=== PATIENT | female | born 1940 | race Two or more races ===

== ENCOUNTER 2021-05-07 10:57 | Emergency (ER) | payer OTHER ==
[~2021-05-07] VITALS: Ht 162.6 cm; Wt 99.8 kg
[~2021-05-07 10:57] MED LIST: ASPI81CH PO; ATOR40TA PO; CEPH500 PO; CHOL10002 PO; CLOP75 PO; FISH1000 PO; INSULIN PEN; LEVSOD75 PO; LIRA0.6P; LIRA0.6P SC; LOVA40 PO; MELO7.5 PO; METF500 PO; METF500C PO; METO25 PO; Norco 5-325 Ta1 EACH PO; OXYACE5T PO; Omeprazole20 M1 PO; PANT40 PO; RXSULTRIDS PO; SULTRIDS PO; TELM80 PO; VITAMIN B122500 MC1 PO; Zofran Odt4 MG SL
[2021-05-07 11:20] LABS: Calcium, Ionized (POC) 1.09 mmol/L (1.10-1.46); Chloride (POC) 97 mmol/L (98-108); Creatinine (POC) 1.6 mg/dL (0.6-1.0); Glucose (ISTAT POC) 300 mg/dL (70-99); Hemoglobin (POC) 12.9 g/dL (12.0-16.0); Potassium (POC) 4.2 mmol/L (3.5-5.5); Sodium (POC) 130 mmol/L (135-148); Total CO2 (POC) 23 mmol/L (21-32)
[2021-05-07 11:34] LABS: BASOPHILS ABSOLUTE AUTO 0.05 K/mm3 (0.00-0.23); BASOPHILS PERCENT AUTO 1 % (0-2); EOSINOPHILS ABSOLUTE AUTO 0.12 K/mm3 (0.00-0.68); EOSINOPHILS PERCENT AUTO 1 % (0-6); Hematocrit 36.5 % (33.0-51.0); Hemoglobin 12.4 g/dL (11.5-16.0); IMMATURE GRAN ABSOLUTE AUTO 0.09 K/mm3 (0.00-0.10); IMMATURE GRAN PERCENT AUTO 1 % (0-1); LYMPHOCYTES ABSOLUTE AUTO 1.97 K/mm3 (0.84-5.20); LYMPHOCYTES PERCENT AUTO 19 % (21-46); MONOCYTES ABSOLUTE AUTO 0.73 K/mm3 (0.16-1.47); MONOCYTES PERCENT AUTO 7 % (4-13); Mean Corpuscular Volume 94 fL (80-100); Mean Platelet Volume 9.7 fL (9.1-12.4); NEUTROPHILS ABSOLUTE AUTO 7.23 K/mm3 (1.96-9.15); NEUTROPHILS PERCENT AUTO 71 % (41-73); Platelet Count 319 K/mm3 (150-400); RDW Coefficient Variation 12.1 % (11.7-14.2); RDW Standard Deviation 41.5 fL (35.1-46.3); Red Blood Cell Count 3.87 M/mm3 (3.80-5.20); White Blood Cell Count 10.19 K/mm3 (4.00-11.30)
[2021-05-07 11:57] LABS: Albumin, Blood 3.2 g/dL (3.4-5.0); Albumin/Globulin Ratio 0.9 (0.8-1.8); Bilirubin, Total 0.6 mg/dL (0.1-1.0); Bun/Creatinine Ratio 20.2 (12.0-20.0); Calcium, Blood 8.8 mg/dL (8.5-10.1); Creatinine, Blood 1.63 mg/dL (0.40-1.00); Globulin, Blood 3.5 g/dL (2.2-4.0); Potassium, Blood 4.1 mmol/L (3.5-5.5); Total Protein, Blood 6.7 g/dL (6.4-8.2)
[2021-05-07 14:06] LABS: Source, Urine Clean Catch
[2021-05-07 14:09] LABS: Appearance, Urine Clear (Clear); Bilirubin, Urine Neg (Neg); Blood, Urine Neg (Neg); Color, Urine Yellow (P-Yellow); Glucose Qualitative, Urine 4+ (Neg); Ketones, Urine 1+ (Neg); Leukocyte Esterase, Urine Neg (Neg); Nitrite, Urine Neg (Neg); Protein, Urine 1+ (Neg); Urobilinogen, Urine NORM (Normal)
[2021-05-07] MEDS ORDERED: DOCU100 PO (14:34)
[2021-05-07] MEDS ORDERED: HYDR1TAB94 PO (14:34)
== END 2021-05-07 15:28 | disposition home or self-care (01) ==
LOC: ER 10:57
PROVIDERS: Emergency Medicine
DX: K40.20 Bilateral inguinal hernia, without obstruction or gangrene, not specified as recurrent (principal); R19.00 Intra-abdominal and pelvic swelling, mass and lump, unspecified site; I25.10 Atherosclerotic heart disease of native coronary artery without angina pectoris; E11.9 Type 2 diabetes mellitus without complications; Z79.82 Long term (current) use of aspirin; Z79.84 Long term (current) use of oral hypoglycemic drugs; Z79.899 Other long term (current) drug therapy
CPT/HCPCS: 74177; 80047; 80053; 83690; 85014; 85025; 93005; 93010; 96374; 99284-25; J3010; J7030; Q9967

== ENCOUNTER 2021-08-06 13:20 | Emergency (ER) | payer OTHER ==
[~2021-08-06] VITALS: Ht 165.1 cm; Wt 90.7 kg
[~2021-08-06 13:20] MED LIST changes: +DOCU100 PO; +HYDR1TAB94 PO
[2021-08-06 14:10] LABS: BASOPHILS ABSOLUTE AUTO 0.08 K/mm3 (0.00-0.23); BASOPHILS PERCENT AUTO 1 % (0-2); EOSINOPHILS ABSOLUTE AUTO 0.17 K/mm3 (0.00-0.68); EOSINOPHILS PERCENT AUTO 2 % (0-6); Hematocrit 34.8 % (33.0-51.0); Hemoglobin 11.6 g/dL (11.5-16.0); IMMATURE GRAN ABSOLUTE AUTO 0.03 K/mm3 (0.00-0.10); IMMATURE GRAN PERCENT AUTO 0 % (0-1); LYMPHOCYTES ABSOLUTE AUTO 1.99 K/mm3 (0.84-5.20); LYMPHOCYTES PERCENT AUTO 25 % (21-46); MONOCYTES ABSOLUTE AUTO 0.47 K/mm3 (0.16-1.47); MONOCYTES PERCENT AUTO 6 % (4-13); Mean Corpuscular HGB 32.3 pg (26.0-34.0); Mean Corpuscular HGB Conc 33.3 g/dL (31.5-36.5); Mean Corpuscular Volume 97 fL (80-100); Mean Platelet Volume 8.4 fL (9.1-12.4); NEUTROPHILS ABSOLUTE AUTO 5.12 K/mm3 (1.96-9.15); NEUTROPHILS PERCENT AUTO 65 % (41-73); Platelet Count 441 K/mm3 (150-400); RDW Coefficient Variation 13.2 % (11.7-14.2); RDW Standard Deviation 47.7 fL (35.1-46.3); Red Blood Cell Count 3.59 M/mm3 (3.80-5.20); White Blood Cell Count 7.86 K/mm3 (4.00-11.30)
[2021-08-06 14:31] LABS: Albumin, Blood 3.9 g/dL (3.4-5.0); Bilirubin, Total 0.4 mg/dL (0.1-1.0); Bun/Creatinine Ratio 13.1 (12.0-20.0); Calcium, Blood 9.4 mg/dL (8.5-10.1); Creatinine, Blood 1.37 mg/dL (0.40-1.00); Globulin, Blood 4.1 g/dL (2.2-4.0); Potassium, Blood 4.8 mmol/L (3.5-5.5)
[2021-08-06 17:03] LABS: Source, Urine Clean Catch
[2021-08-06 17:25] LABS: Bilirubin, Urine Neg (Neg); Blood, Urine 1+ (Neg); Glucose Qualitative, Urine Neg (Neg); Ketones, Urine 1+ (Neg); Leukocyte Esterase, Urine 3+ (Neg); Nitrite, Urine Neg (Neg); Protein, Urine 2+ (Neg); Urobilinogen, Urine NORM (Normal)
[2021-08-06 17:35] LABS: Appearance, Urine Clear (Clear); Color, Urine Pale Yellow (P-Yellow)
[2021-08-06 17:36] LABS: Squamous Epithelial Cells Many /hpf (Few)
[2021-08-06 17:37] LABS: Bacteria Few /hpf; Red Blood Cells, Urine 0-2 /hpf (0-2)
[2021-08-06] MEDS ORDERED: Percocet 5-3251 EACH PO (18:10)
== END 2021-08-06 18:29 | disposition home or self-care (01) ==
LOC: ER 13:20
PROVIDERS: Physician Assistant
DX: B02.29 Other postherpetic nervous system involvement (principal); Z79.899 Other long term (current) drug therapy; Z79.84 Long term (current) use of oral hypoglycemic drugs; Z79.82 Long term (current) use of aspirin; E11.9 Type 2 diabetes mellitus without complications
CPT/HCPCS: 36415; 74177; 80053; 81001; 83690; 85025; 87086; 99284-25; Q9967

== ENCOUNTER 2021-11-17 12:27 | Inpatient (IN) | payer OTHER ==
[~2021-11-17] VITALS: Ht 162.6 cm; Wt 89.4 kg
[~2021-11-17 12:27] MED LIST changes: -CHOL10002 PO; +Percocet 5-3251 EACH PO; +VITAMIN D31000 UNI1 PO
[2021-11-17 13:16] LABS: Hematocrit 31.3 % (33.0-51.0); Hemoglobin 10.6 g/dL (11.5-16.0); Mean Corpuscular HGB 32.6 pg (26.0-34.0); Mean Corpuscular HGB Conc 33.9 g/dL (31.5-36.5); Mean Corpuscular Volume 96 fL (80-100); Mean Platelet Volume 9.1 fL (9.1-12.4); Platelet Count 370 K/mm3 (150-400); RDW Coefficient Variation 11.7 % (11.7-14.2); RDW Standard Deviation 41.1 fL (35.1-46.3); Red Blood Cell Count 3.25 M/mm3 (3.80-5.20); White Blood Cell Count 12.36 K/mm3 (4.00-11.30)
[2021-11-17 13:43] LABS: Anion Gap 10 mmol/L (6-16); Blood Urea Nitrogen 33 mg/dL (8-24); Bun/Creatinine Ratio 18.9 (12.0-20.0); CHOL/HDL RATIO 2.2; CO2, Blood 27 mmol/L (21-32); CPK Creatine Kinase 41 U/L (26-193); Calcium, Blood 9.7 mg/dL (8.5-10.1); Chloride, Blood 99 mmol/L (98-108); Cholesterol 131 mg/dL (50-200); Creatinine, Blood 1.75 mg/dL (0.40-1.00); Glomerular Filtration Rate 29 (60-); Glucose, Blood 198 mg/dL (70-99); HDL Cholesterol 60 mg/dL (>39); LDL/HDL RATIO 0.7; Low Density Lipoprotein Chol 40 mg/dL (0-110); Magnesium, Blood 1.8 mg/dL (1.6-2.4); Potassium, Blood 4.3 mmol/L (3.5-5.5); Sodium, Blood 136 mmol/L (136-145); Triglycerides 157 mg/dL (30-160); Very Low Density Lipoprot Chol 31 mg/dL (6-32)
[2021-11-17 13:44] LABS: Creatine Kinase MB <1.0 ng/mL (0.0-3.6); Creatine Kinase MB Index Unable to Calculate (0.0-4.0)
[2021-11-17 16:24] LABS: International Normalized Ratio 0.95
[2021-11-18 03:37] LABS: Hematocrit 26.3 % (33.0-51.0); Hemoglobin 8.8 g/dL (11.5-16.0); Mean Corpuscular HGB 32.7 pg (26.0-34.0); Mean Corpuscular HGB Conc 33.5 g/dL (31.5-36.5); Mean Corpuscular Volume 98 fL (80-100); Mean Platelet Volume 8.9 fL (9.1-12.4); Platelet Count 318 K/mm3 (150-400); RDW Coefficient Variation 11.8 % (11.7-14.2); RDW Standard Deviation 41.4 fL (35.1-46.3); Red Blood Cell Count 2.69 M/mm3 (3.80-5.20); White Blood Cell Count 9.73 K/mm3 (4.00-11.30)
[2021-11-18 03:53] LABS: Calcium, Blood 8.6 mg/dL (8.5-10.1); Potassium, Blood 4.1 mmol/L (3.5-5.5)
--- NOTE | 2021-11-18 05:55 | NUR ---
SHIFT SUMMARY Assumed care of pt at 1900. A/Ox4. Reports no CP/pressure. Slightly [place]. Ambulates with SBA to bathroom. Resp WNL. SR-ST on tele. Soft BP this shift with MAP of high 50's to low 60's. Repeat Troponin went from 346 to 1594. Physician notified and orders received. 1L fluid bolus and repeat check MAP over 65. Around 0400 patient began having chest pain radiating to L jaw and associated nausea. Patient's SBP was in 160's and she was in bigeminy at this time, which she had not been in all night. Patient stated "this is how I felt before I came here". Troponin was 2333. Physician notified, orders received. Medicated with Nitro with good relief. SBP down in low 100's again. Heparin infusing per emar. Will report to dayshift MAKAYLA.
[2021-11-18 12:09] LABS: Percent Saturation 43.7 % (15.0-50.0)
--- NOTE | 2021-11-18 14:36 | NUR ---
Upon receiving a referral for spiritual care, I visit pt. Pt immediately tells me that she did not ask for spiritual care. I offer to say a prayer for her and she accepts. I gladly provide prayer. Patient expresses gratitude.
--- NOTE | 2021-11-18 15:59 | NUR ---
END OF SHIFT SUMMARY/ ACUTE CHEST PAIN EVENT: PATIENT WITH AFTERNOON VITALS WAS "FEELING OFF" PATIENT IN NO SIGN OF ACUTE DISTRESS, ORAL METOPROLOL WAS JUST GIVEN, A FEW MINUTES AFTER THIS SOFTWARE CONFIGURATION ANALYST LEFT THE ROOM, PATIENT STARTED TO FEEL NECK PAIN, SHE INFORMED RN, FELLOW RN IN THE ROOM, EKG OBTAINED, CALLED TO DR. BHATT, DR. BHATT RECOMMENDATIONS WERE TO GIVEN 1 X NITRO SL .4, AND 2.5 OF LOPRESSOR. PATIENT HAD IMMEDIATE IMPROVMENT OF PAIN. PATIENTS HEARTRATE WAS 100'S LOW 110'S BEFORE ADMINISTRATION, AND DROPPED TO 80'S AND OVER THE NEXT 30 MINUTES STARTED TO DROP TO THE 50'S ASYMPTOMATIC, OCCASSIONALLY 45 STILL ASYMPTOMATIC, CURRENLTY HEARTRATE IS IN THE 80'S FAMILY AT BEDSIDE ON RA, NO ACUTE SIGN OF DISTRESS, ALERT AND ORIENTED X 4. NO SIGNS OF REACTION WITH 1 UNIT OF PRBC'S AT THIS TIME, STILL RUNNING CURRENLTY. ADDITIONALLY INFUSING HEPARIN INTO OTHER IV, ANTI X WILL BE RECKED WITH AM LABS 3 HAVE HAD NO CHANGE BEEN IN RANGE. PATIENT DENIES PAIN AT THIS TIME. PATIENT CHEST PAIN FREE SINCE INCIDENT ABOVE, NORMOTENSIVE WILL CONTINUE TO MONITOR UNTIL SHIFT CHANGE. NO CONCERNS FROM THIS SOFTWARE CONFIGURATION ANALYST AT THIS.
[2021-11-18 20:07] LABS: Hematocrit 27.3 % (33.0-51.0); Hemoglobin 9.3 g/dL (11.5-16.0)
--- NOTE | 2021-11-18 20:53 | NUR ---
Doctor notified of Hgb of 9.3 and regarding cardiology's note to keep Hgb over 10. Order for repeat H&H in a few hours.
[2021-11-19 00:50] LABS: Hematocrit 27.7 % (33.0-51.0); Hemoglobin 9.4 g/dL (11.5-16.0)
[2021-11-19 04:32] LABS: Hemoglobin 9.9 g/dL (11.5-16.0); Mean Corpuscular HGB 32.1 pg (26.0-34.0); Mean Corpuscular HGB Conc 34.1 g/dL (31.5-36.5); Mean Corpuscular Volume 94 fL (80-100); Mean Platelet Volume 9.2 fL (9.1-12.4); Platelet Count 315 K/mm3 (150-400); RDW Coefficient Variation 12.3 % (11.7-14.2); RDW Standard Deviation 42.6 fL (35.1-46.3); Red Blood Cell Count 3.08 M/mm3 (3.80-5.20); White Blood Cell Count 9.17 K/mm3 (4.00-11.30)
[2021-11-19 04:52] LABS: Albumin, Blood 2.9 g/dL (3.4-5.0); Anion Gap 10 mmol/L (6-16); Blood Urea Nitrogen 28 mg/dL (8-24); Bun/Creatinine Ratio 19.3 (12.0-20.0); CO2, Blood 25 mmol/L (21-32); Calcium, Blood 9.3 mg/dL (8.5-10.1); Chloride, Blood 103 mmol/L (98-108); Creatinine, Blood 1.45 mg/dL (0.40-1.00); Glomerular Filtration Rate 36 (60-); Glucose, Blood 180 mg/dL (70-99); Phosphorus, Blood 2.4 mg/dL (2.5-4.9); Potassium, Blood 3.9 mmol/L (3.5-5.5); Sodium, Blood 138 mmol/L (136-145)
--- NOTE | 2021-11-19 06:04 | NUR ---
SHIFT SUMMARY Patient remained A/Ox4, slept for most of the night. One episode of CP, Nitro and PRN pain med given. Patient reports relief. EKG obtained and in pt chart. At the time patient was in bigeminy. Resp WNL. SR on tele. Normotensive. Heparin infusing per emar. Will report to dayshift MAKAYLA.
[2021-11-19 10:25] LABS: SARS-Cov-2 (COVID-19) PCR, MMC NEGATIVE (NEGATIVE)
--- NOTE | 2021-11-19 16:29 | NUR ---
ANGIO PT BROUGHT BACK TO PCU-19 IN PCU BED FROM CONSULTANT DIETITIAN @ APPROX 1600. R RADIAL ACCESS SITE W/ REPORT OF 20 MLS AIR IN BAND W/ PLAN TO BEGIN DEFLATING AFTER 1800. SITE WNL, NO BLEEDING, NO HEMATOMA. ARM BOARD IN PLACE. PT REMINDED OF POST ANGIO ACCESS SITE RESTRICTIONS. PT A&O X4. VSS. PT DENIES CP. PT C/O BEING COLD & "FROZE OUT". WARM BLANKET PROVIDED. FAMILY AT BEDSIDE.
--- NOTE | 2021-11-19 18:34 | NUR ---
END OF SHIFT NOTE PT A&O X4. VSS. SPO2 > 92% ON RA. MONITOR SHOWING NSR, HR 60s-70s. PT DENYING CP THIS SHIFT. ANGIO TODAY W/ REPORT OF 3 STENTS PLACED. R RADIAL ACCESS SITE W/ TR BAND IN PLACE. DEFLATION PROCESS BEGAN @ APPROX 1815 W/ 6 MLS AIR NOW REMOVED FROM BAND. SITE WNL W/ NO BLEEDING & NO HEMATOMA. ARM BOARD IN PLACE.
[2021-11-20 04:56] LABS: BASOPHILS ABSOLUTE AUTO 0.05 K/mm3 (0.00-0.23); BASOPHILS PERCENT AUTO 1 % (0-2); EOSINOPHILS ABSOLUTE AUTO 0.58 K/mm3 (0.00-0.68); EOSINOPHILS PERCENT AUTO 6 % (0-6); IMMATURE GRAN ABSOLUTE AUTO 0.03 K/mm3 (0.00-0.10); IMMATURE GRAN PERCENT AUTO 0 % (0-1); LYMPHOCYTES ABSOLUTE AUTO 1.89 K/mm3 (0.84-5.20); LYMPHOCYTES PERCENT AUTO 19 % (21-46); MONOCYTES ABSOLUTE AUTO 0.93 K/mm3 (0.16-1.47); MONOCYTES PERCENT AUTO 9 % (4-13); Mean Corpuscular HGB 32.3 pg (26.0-34.0); Mean Corpuscular HGB Conc 34.5 g/dL (31.5-36.5); Mean Corpuscular Volume 94 fL (80-100); Mean Platelet Volume 8.8 fL (9.1-12.4); NEUTROPHILS PERCENT AUTO 65 % (41-73); Platelet Count 315 K/mm3 (150-400); RDW Coefficient Variation 12.1 % (11.7-14.2); RDW Standard Deviation 41.4 fL (35.1-46.3); White Blood Cell Count 9.98 K/mm3 (4.00-11.30)
--- NOTE | 2021-11-20 05:43 | NUR ---
SHIFT SUMMARY A/Ox4. VSS. TR band recovered from R radial site and C/D/I with no hematoma. Patient had no reports of CP entire shift. Slept most of the night. C/o shoulder pain relieved by moving to chair and PRN medication. Will report to dayshift RN.
[2021-11-20 06:15] LABS: Albumin, Blood 3.1 g/dL (3.4-5.0); Anion Gap 6 mmol/L (6-16); Blood Urea Nitrogen 21 mg/dL (8-24); Bun/Creatinine Ratio 17.6 (12.0-20.0); CO2, Blood 26 mmol/L (21-32); Calcium, Blood 9.2 mg/dL (8.5-10.1); Chloride, Blood 105 mmol/L (98-108); Creatinine, Blood 1.19 mg/dL (0.40-1.00); Glomerular Filtration Rate 46 (60-); Glucose, Blood 166 mg/dL (70-99); Phosphorus, Blood 2.8 mg/dL (2.5-4.9); Potassium, Blood 4.2 mmol/L (3.5-5.5); Sodium, Blood 137 mmol/L (136-145)
[2021-11-20] MEDS ORDERED: METO50ER PO (14:51)
[2021-11-20] MEDS ORDERED: NITR.4SL SL (14:54)
[2021-11-20] MEDS ORDERED: Isosorbide Mono30 MG PO (14:54)
[2021-11-20 16:18] LABS: Hematocrit 29.4 % (33.0-51.0); Hemoglobin 10.1 g/dL (11.5-16.0)
--- NOTE | 2021-11-20 18:28 | NUR ---
DISCHARGE HOME PT A&O X4. VSS. SPO2 > 92% ON RA. PT DENYING CP THIS SHIFT. MD BHATT W/ OKAY FOR DISCHARGE & PT TO F/U HGB & PRINTING MACHINE OPERATOR TAPE RULES 11/23/21. MD SOSA W/ ORDERS FOR DISCHARGE HOME. DISCHARGE INSTRUCTIONS REVIEWED W/ PT & PT SPOUSE. IVs REMOVED. PT TAKEN OUT BY WHEELCHAIR @ APPROX 1800.
== END 2021-11-20 17:48 | disposition home or self-care (01) | DRG 247 ==
LOC: ER 12:27 → PCU 15:52
PROVIDERS: Emergency Medicine; Family Medicine; Internal Medicine; Internal Medicine Interventional Cardiology; Nurse Practitioner Acute Care; ADMIT Internal Medicine
PROC: 30233N1 Transfusion of Nonautologous Red Blood Cells into Peripheral Vein, Percutaneous Approach (ICD-10-PCS; 2021-11-18)
PROC: 027035Z Dilation of Coronary Artery, One Artery with Two Drug-eluting Intraluminal Devices, Percutaneous Approach (ICD-10-PCS; principal; 2021-11-19)
PROC: 4A023N7 Measurement of Cardiac Sampling and Pressure, Left Heart, Percutaneous Approach (ICD-10-PCS; 2021-11-19)
PROC: B2111ZZ Fluoroscopy of Multiple Coronary Arteries using Low Osmolar Contrast (ICD-10-PCS; 2021-11-19)
PROC: B2151ZZ Fluoroscopy of Left Heart using Low Osmolar Contrast (ICD-10-PCS; 2021-11-19)
PROC: B24BZZ3 Ultrasonography of Heart with Aorta, Intravascular (ICD-10-PCS; 2021-11-19)
DX: I21.4 Non-ST elevation (NSTEMI) myocardial infarction (principal); I13.0 Hypertensive heart and chronic kidney disease with heart failure and stage 1 through stage 4 chronic kidney disease, or unspecified chronic kidney disease; I50.42 Chronic combined systolic (congestive) and diastolic (congestive) heart failure; N17.9 Acute kidney failure, unspecified; D72.829 Elevated white blood cell count, unspecified; Z20.822 Contact with and (suspected) exposure to COVID-19; E78.5 Hyperlipidemia, unspecified; K21.9 Gastro-esophageal reflux disease without esophagitis; M17.0 Bilateral primary osteoarthritis of knee; E11.22 Type 2 diabetes mellitus with diabetic chronic kidney disease; N18.30 Chronic kidney disease, stage 3 unspecified; E66.01 Morbid (severe) obesity due to excess calories; D63.1 Anemia in chronic kidney disease; I25.10 Atherosclerotic heart disease of native coronary artery without angina pectoris; I95.2 Hypotension due to drugs; T50.905A Adverse effect of unspecified drugs, medicaments and biological substances, initial encounter; Z68.36 Body mass index [BMI] 36.0-36.9, adult; Z95.5 Presence of coronary angioplasty implant and graft; Z85.3 Personal history of malignant neoplasm of breast; Z90.49 Acquired absence of other specified parts of digestive tract; Z90.89 Acquired absence of other organs; Z79.02 Long term (current) use of antithrombotics/antiplatelets; Z79.82 Long term (current) use of aspirin; Z79.899 Other long term (current) drug therapy
CPT/HCPCS: 36415; 36430; 37236; 37237; 71045; 76937; 80048; 80061; 80069; 82550; 82553; 82565; 82728; 82947; 83540; 83550; 83735; 84484; 85014; 85018; 85025; 85027; 85347; 85520; 85610; 85730; 86850; 86900; 86901; 86923; 92978; 93005; 93010; 93458; 99152; 99153; 99285-25; A9270; C1725; C1751; C1753; C1761; C1769; C1874; C1887; C1894; C8929; C9113; C9602; J1644; J2250; J2405; J3010; J7030; J7040; P9016; Q9957; Q9967; U0004

== ENCOUNTER 2022-03-12 16:29 | Emergency (ER) | payer OTHER ==
[~2022-03-12] VITALS: Ht 162.6 cm; Wt 97.5 kg
[~2022-03-12 16:29] MED LIST changes: +Isosorbide Mono30 MG PO; +METO50ER PO; +NITR.4SL SL
[2022-03-12 18:03] LABS: BASOPHILS ABSOLUTE AUTO 0.06 K/mm3 (0.00-0.23); BASOPHILS PERCENT AUTO 1 % (0-2); EOSINOPHILS ABSOLUTE AUTO 0.32 K/mm3 (0.00-0.68); EOSINOPHILS PERCENT AUTO 3 % (0-6); Hematocrit 29.5 % (33.0-51.0); Hemoglobin 9.8 g/dL (11.5-16.0); IMMATURE GRAN ABSOLUTE AUTO 0.03 K/mm3 (0.00-0.10); IMMATURE GRAN PERCENT AUTO 0 % (0-1); LYMPHOCYTES ABSOLUTE AUTO 2.01 K/mm3 (0.84-5.20); LYMPHOCYTES PERCENT AUTO 22 % (21-46); MONOCYTES ABSOLUTE AUTO 0.75 K/mm3 (0.16-1.47); MONOCYTES PERCENT AUTO 8 % (4-13); Mean Corpuscular HGB 31.5 pg (26.0-34.0); Mean Corpuscular HGB Conc 33.2 g/dL (31.5-36.5); Mean Corpuscular Volume 95 fL (80-100); Mean Platelet Volume 8.5 fL (9.1-12.4); NEUTROPHILS ABSOLUTE AUTO 6.17 K/mm3 (1.96-9.15); NEUTROPHILS PERCENT AUTO 66 % (41-73); Platelet Count 486 K/mm3 (150-400); RDW Coefficient Variation 13.3 % (11.7-14.2); RDW Standard Deviation 45.8 fL (35.1-46.3); Red Blood Cell Count 3.11 M/mm3 (3.80-5.20); White Blood Cell Count 9.34 K/mm3 (4.00-11.30)
[2022-03-12 18:11] LABS: Influenza A, PCR NEGATIVE (NEGATIVE); Influenza B, PCR NEGATIVE (NEGATIVE); Resp Syncytial Virus, PCR NEGATIVE (NEGATIVE); SARS-Cov-2 (COVID-19) PCR, MMC NEGATIVE (NEGATIVE)
[2022-03-12 18:27] LABS: Albumin, Blood 3.2 g/dL (3.4-5.0); Albumin/Globulin Ratio 0.7 (0.8-1.8); Bilirubin, Total 0.4 mg/dL (0.1-1.0); Bun/Creatinine Ratio 17.1 (12.0-20.0); Creatinine, Blood 1.17 mg/dL (0.40-1.00); Globulin, Blood 4.3 g/dL (2.2-4.0); Potassium, Blood 4.2 mmol/L (3.5-5.5); Total Protein, Blood 7.5 g/dL (6.4-8.2)
[2022-03-12] MEDS ORDERED: Ondansetron Odt8 MG MM (18:29)
[2022-03-12] MEDS ORDERED: AMITRIPTYLINE H25 MG PO (18:29)
[2022-03-12] MEDS ORDERED: MONT10T PO (18:31)
[2022-03-12] MEDS ORDERED: FUROSEMIDE40 MG PO (18:32)
[2022-03-12] MEDS ORDERED: Synthroid/Levo0.2 MG PO (18:32)
== END 2022-03-12 21:28 | disposition home or self-care (01) ==
LOC: ER 16:29
PROVIDERS: Physician Assistant
DX: R06.02 Shortness of breath (principal); E11.9 Type 2 diabetes mellitus without complications; Z79.82 Long term (current) use of aspirin; Z79.84 Long term (current) use of oral hypoglycemic drugs; Z79.899 Other long term (current) drug therapy; Z20.822 Contact with and (suspected) exposure to COVID-19
CPT/HCPCS: 0241U; 36415; 71045; 80053; 83880; 84484; 85025; 93005; 93010

== ENCOUNTER 2022-09-28 00:42 | Inpatient (IN) | payer OTHER ==
[~2022-09-28] VITALS: Ht 162.6 cm; Wt 90.7 kg
[~2022-09-28 00:42] MED LIST changes: +AMITRIPTYLINE H25 MG PO; +FUROSEMIDE40 MG PO; +MONT10T PO; +Ondansetron Odt8 MG MM; +Synthroid/Levo0.2 MG PO
[2022-09-28] MEDS ORDERED: METOPROLOL TART25 MG PO (01:59)
[2022-09-28 02:02] LABS: BASOPHILS PERCENT AUTO 1 % (0-2); EOSINOPHILS ABSOLUTE AUTO 1.03 K/mm3 (0.00-0.68); EOSINOPHILS PERCENT AUTO 11 % (0-6); Hematocrit 29.2 % (33.0-51.0); IMMATURE GRAN ABSOLUTE AUTO 0.08 K/mm3 (0.00-0.10); IMMATURE GRAN PERCENT AUTO 1 % (0-1); LYMPHOCYTES ABSOLUTE AUTO 1.86 K/mm3 (0.84-5.20); LYMPHOCYTES PERCENT AUTO 20 % (21-46); MONOCYTES ABSOLUTE AUTO 0.64 K/mm3 (0.16-1.47); MONOCYTES PERCENT AUTO 7 % (4-13); Mean Corpuscular HGB 32.1 pg (26.0-34.0); Mean Corpuscular HGB Conc 34.2 g/dL (31.5-36.5); Mean Corpuscular Volume 94 fL (80-100); Mean Platelet Volume 9.8 fL (9.1-12.4); NEUTROPHILS PERCENT AUTO 59 % (41-73); Platelet Count 322 K/mm3 (150-400); RDW Coefficient Variation 12.6 % (11.7-14.2); Red Blood Cell Count 3.12 M/mm3 (3.80-5.20); White Blood Cell Count 9.11 K/mm3 (4.00-11.30)
[2022-09-28] MEDS ORDERED: TELMISARTAN80 MG PO (02:05)
[2022-09-28] MEDS ORDERED: TOUJEO SOL300 UNIT/2 SC (02:07)
[2022-09-28 02:31] LABS: Bun/Creatinine Ratio 17.9 (12.0-20.0); Calcium, Blood 8.8 mg/dL (8.5-10.1); Creatinine, Blood 3.69 mg/dL (0.40-1.00); Potassium, Blood 4.9 mmol/L (3.5-5.5)
[2022-09-28 04:29] LABS: Source, Urine Straight Cath
[2022-09-28 05:28] LABS: Appearance, Urine Hazy (Clear); Bilirubin, Urine Neg (Neg); Blood, Urine Neg (Neg); Glucose Qualitative, Urine Neg (Neg); Ketones, Urine Neg (Neg); Leukocyte Esterase, Urine Neg (Neg); Nitrite, Urine Neg (Neg); Protein, Urine Neg (Neg); Urobilinogen, Urine NORM (Normal)
[2022-09-28] MEDS ORDERED: TELM80 PO (05:38)
[2022-09-28 05:40] LABS: Color, Urine Yellow (P-Yellow)
[2022-09-28 05:42] LABS: Amorphous Mod (0-Heavy); Bacteria Rare /hpf; Red Blood Cells, Urine 0-2 /hpf (0-2); Squamous Epithelial Cells Few /hpf (Few); White Blood Cells, Urine 0-2 /hpf (0-5)
[2022-09-28 06:15] VITALS: BP 140/64
--- NOTE | 2022-09-28 07:25 | NUR ---
Shift Summary Pt admitted to the unit with DX of K[place]. She came to the ER after experiencing what felt like her previous SD, sharp chest pain, and taking some nitroglycerin for it. No c/o chest pain here. ER nurse stated in report that pt may have urinary retention, 400+ mL straight cathed in ER. Running LR@125. Ultra sound for kidney and bladder ordered. AOx4.
[2022-09-28 08:53] VITALS: BP 126/70
--- NOTE | 2022-09-28 11:00 | NUR ---
MEDICATION RECONCILIATION CALLED JOSE M IN [place] TO REQUEST A 90 DAY MEDICATION HISTORY WITH INSTRUCTIONS. PT IS UNABLE TO GIVE DETAILED MEDICATION HISTORY. CONTINUE POC.
--- NOTE | 2022-09-28 12:03 | NUR ---
POST VOID BLADDER SCAN NON MEASURED VOID MIXED WITH BM. POST VOID 180 ML. CONTINUE POC.
[2022-09-28 16:35] VITALS: BP 120/58
[2022-09-28 19:59] VITALS: BP 126/70
--- NOTE | 2022-09-29 04:54 | NUR ---
Shift Summary No c/o of chest pain and no urinary retention this shift. 1 assist to the bathroom due to lines. No c/o pain or nausea. Rcving 1/2NS @ 100. Slept well t/o the night.
[2022-09-29 05:08] LABS: BASOPHILS ABSOLUTE AUTO 0.08 K/mm3 (0.00-0.23); BASOPHILS PERCENT AUTO 1 % (0-2); EOSINOPHILS ABSOLUTE AUTO 1.01 K/mm3 (0.00-0.68); EOSINOPHILS PERCENT AUTO 13 % (0-6); Hematocrit 28.8 % (33.0-51.0); Hemoglobin 9.9 g/dL (11.5-16.0); IMMATURE GRAN ABSOLUTE AUTO 0.02 K/mm3 (0.00-0.10); IMMATURE GRAN PERCENT AUTO 0 % (0-1); LYMPHOCYTES ABSOLUTE AUTO 1.65 K/mm3 (0.84-5.20); LYMPHOCYTES PERCENT AUTO 22 % (21-46); MONOCYTES ABSOLUTE AUTO 0.72 K/mm3 (0.16-1.47); MONOCYTES PERCENT AUTO 9 % (4-13); Mean Corpuscular HGB 31.7 pg (26.0-34.0); Mean Corpuscular HGB Conc 34.4 g/dL (31.5-36.5); Mean Corpuscular Volume 92 fL (80-100); Mean Platelet Volume 9.8 fL (9.1-12.4); NEUTROPHILS ABSOLUTE AUTO 4.16 K/mm3 (1.96-9.15); NEUTROPHILS PERCENT AUTO 55 % (41-73); Platelet Count 291 K/mm3 (150-400); RDW Coefficient Variation 12.6 % (11.7-14.2); RDW Standard Deviation 42.1 fL (35.1-46.3); Red Blood Cell Count 3.12 M/mm3 (3.80-5.20); White Blood Cell Count 7.64 K/mm3 (4.00-11.30)
[2022-09-29 05:54] LABS: Magnesium, Blood 1.3 mg/dL (1.6-2.4)
[2022-09-29 05:55] LABS: Albumin, Blood 3.3 g/dL (3.4-5.0); Bilirubin, Total 0.4 mg/dL (0.1-1.0); Calcium, Blood 8.8 mg/dL (8.5-10.1); Creatinine, Blood 3.48 mg/dL (0.40-1.00); Globulin, Blood 3.3 g/dL (2.2-4.0); Potassium, Blood 4.1 mmol/L (3.5-5.5); Total Protein, Blood 6.6 g/dL (6.4-8.2)
[2022-09-29 07:31] VITALS: BP 124/77
[2022-09-29 13:33] VITALS: BP 114/82
--- NOTE | 2022-09-29 14:06 | NUR ---
POST FALL DR HEARN CALLED TO REPORT FALL AND PT SORE LEFT KNEE. NO ORDERS. CONTINUE POC
[2022-09-29 15:18] VITALS: BP 114/82
[2022-09-29 15:50] VITALS: BP 139/69
--- NOTE | 2022-09-29 18:37 | NUR ---
NOTE PT SITTING UP WITH FAMILY. SHE TOLD THEM ABOUT HER SLIP/FALL. LEFT KNEE IMPROVING WITH ROM. SHE WALKED INTO THE BATHROOM. KNEE WAS STIFF BUT NO INCREASE WITH DISCOMFORT WITH WEIGHT BEARING. NORCO HELPED. NO BRUISING OR ABRASIONS. PT DRESSED IN YELLOW GOWN PER FALL POLICY. PT THINKS THE YELLOW GOWN IS CUTE. CONTINUE POC.
[2022-09-29 20:37] VITALS: BP 126/73
[2022-09-30 03:22] VITALS: BP 151/78
--- NOTE | 2022-09-30 04:03 | NUR ---
SHIFT SUMMARY NOC PT A/O X 4. PLEASANT AND COOPERATIVE WITH CARE. PT L KNEE IS NOTICEABLY LESS SWOLLEN THAN AT THE BEGINNING OF SHIFT. X RAY SHOWED SEVERE OSTEOARTHRITIS AND SMALL EFFUSION. PT IS ABLE TO AMBULATE WITH 1PA TO BATHROOM. PT HAS BEEN MEDICATED FOR PAIN PER EMAR WHEN RX IS AVAILABLE. PT IV BECAME DISLODGED WHEN PT WAS MOVING IN BED, NEW IV ACCESS PLACED IN LFA AND IS INFUSING NS @ 75 MLS/HR. AWAITING AM LABS FOR REEVALUATION OF MAGNESIUM REPLACEMENT, MG WAS 1.3 YESTERDAY. PT IS CURRENTLY RESTING WITH BED ALARM ON, BED IN LOWEST POSITION, AND CALL LIGHT WITHIN REACH
[2022-09-30 05:06] LABS: Hematocrit 28.4 % (33.0-51.0); Hemoglobin 9.6 g/dL (11.5-16.0); Mean Corpuscular HGB 31.3 pg (26.0-34.0); Mean Corpuscular HGB Conc 33.8 g/dL (31.5-36.5); Mean Corpuscular Volume 93 fL (80-100); Mean Platelet Volume 9.2 fL (9.1-12.4); Platelet Count 290 K/mm3 (150-400); RDW Coefficient Variation 12.5 % (11.7-14.2); RDW Standard Deviation 42.4 fL (35.1-46.3); Red Blood Cell Count 3.07 M/mm3 (3.80-5.20); White Blood Cell Count 8.35 K/mm3 (4.00-11.30)
[2022-09-30 05:47] LABS: Albumin, Blood 3.3 g/dL (3.4-5.0); Bilirubin, Total 0.5 mg/dL (0.1-1.0); Bun/Creatinine Ratio 17.6 (12.0-20.0); Calcium, Blood 8.8 mg/dL (8.5-10.1); Creatinine, Blood 2.62 mg/dL (0.40-1.00); Globulin, Blood 3.3 g/dL (2.2-4.0); Magnesium, Blood 1.7 mg/dL (1.6-2.4); Percent Saturation 26.4 % (15.0-50.0); Total Protein, Blood 6.6 g/dL (6.4-8.2)
[2022-09-30 07:32] VITALS: BP 138/69
[2022-09-30 16:20] VITALS: BP 125/66
--- NOTE | 2022-09-30 17:35 | NUR ---
NOTE LIMITED MOBILITY TODAY D/T PAINFUL LEFT KNEE. PT REFUSES ICE PACK-REPEADLY TO HER LEFT KNEE. SHE COMPLAINED THAT 1 NORCO WASN'T HELPING. TALKED WITH DR KNUTSON. SHE INCREASED TO TWO TABLETS. PT WAS THEN SICK TO HER STOMACH BUT STILL ABLE TO EAT LUNCH. MEDICATED WITH ZOFRAM 4MG X1. EFFECTIVE. SHE HAS DECLINED TO WORK WITH PT/OT TODAY. IVF INFUSING. BLOOD SUGARS EELVATED. CALLED DR HEARN TO REQUEST SLIDING SCALE COVERAGE. ORDER RECEIVED. CONTINUE POC.
[2022-09-30 19:36] VITALS: BP 132/66
--- NOTE | 2022-10-01 03:10 | NUR ---
SHIFT SUMMARY NOC PT A/O X 4. PT NO ACUTE CHANGES TO REPORT. PT STILL EXERIENCING PAIN IN L KNEE FROM FALL ON 09/29/22, AND NAUSEA FROM THE PAIN. PT MEDICATED PER EMAR FOR BOTH. PT HAS 0.45% NS INFUSING @ 75 MLS/HR TO CONTINUE IMPROVEMENT IN RENAL FUNCTION. PT HS CBG 261 AND 1 UNIT HUMALIN GIVEN AND 10 UNITS SCHEDULED GLARGINE GIVEN. PT IS CURRENTLY RESTING WITH BED ALARM ON, BED IN LOWEST POSITION, AND CALL LIGHT WITHIN REACH.
[2022-10-01 04:25] VITALS: BP 134/71
[2022-10-01 05:39] LABS: Hematocrit 28.4 % (33.0-51.0); Hemoglobin 9.6 g/dL (11.5-16.0); Mean Corpuscular HGB 31.5 pg (26.0-34.0); Mean Corpuscular HGB Conc 33.8 g/dL (31.5-36.5); Mean Corpuscular Volume 93 fL (80-100); Mean Platelet Volume 9.9 fL (9.1-12.4); Platelet Count 283 K/mm3 (150-400); RDW Coefficient Variation 12.5 % (11.7-14.2); RDW Standard Deviation 42.8 fL (35.1-46.3); Red Blood Cell Count 3.05 M/mm3 (3.80-5.20); White Blood Cell Count 8.17 K/mm3 (4.00-11.30)
[2022-10-01 05:55] LABS: Calcium, Blood 9.2 mg/dL (8.5-10.1); Creatinine, Blood 2.29 mg/dL (0.40-1.00); Potassium, Blood 3.8 mmol/L (3.5-5.5)
[2022-10-01 07:31] VITALS: BP 122/62
[2022-10-01 15:51] VITALS: BP 131/80
--- NOTE | 2022-10-01 17:07 | NUR ---
CALLED DR KNUTSON REPORTED THE LEFT IV INFILTRATION, NO CHANGE TO ORDERS WILL TRY FOR NEW IV
--- NOTE | 2022-10-01 17:26 | NUR ---
MAKES NEEDS KNOWN, FAMILY IN VISITING, PAIN IN KNEES WHEN AMBULATING, 1 PERSON MODERATE ASSIST, PLEASANT AND FORGETFUL, LS DIM IN BASES, 95% ON RA, DENEIS CHEST PAIN OR SOB, STILL COMPLAINS OF NAUSEA, DENIES VOMIT FOR THIS SHIFT, MEDICATED WITH TORADOL FOR PAIN, NO ACUTE CHANGES, CALL LIGHT WITH IN REACH
[2022-10-01 20:45] VITALS: BP 113/66
[2022-10-02 02:39] VITALS: BP 128/94
--- NOTE | 2022-10-02 04:08 | NUR ---
SHIFT SUMMARY; NO ACUTE CHANGES OVERNIGHT. THE PT IS AXO X4 AND A 1 ASSIST TO THE BSC. THE PT HAS BEEN SLEEPING FOR THE ENTIRETY OF THE NIGHT. THE PT REPORTED SOME BACK PAIN EARLY THIS MORNING FOR WHICH SHE RECIEVED A TRAMADOL AND REPORTS GOOD RELIEF. THE PT OTHERWISE DENIES ANY SOB, CHEST PAIN/PRESSURE OR N/V. 1/2 NS IS RUNNING AT 75MLS/HR. CURRENTLY THE PT IS SLEEPING IN BED WITH THE BED IN THE LOWEST POSITION AND THE CALL LIGHT AT BEDSIDE.
[2022-10-02 05:20] LABS: Hematocrit 26.6 % (33.0-51.0); Hemoglobin 8.9 g/dL (11.5-16.0); Mean Corpuscular HGB 31.6 pg (26.0-34.0); Mean Corpuscular HGB Conc 33.5 g/dL (31.5-36.5); Mean Corpuscular Volume 94 fL (80-100); Mean Platelet Volume 9.1 fL (9.1-12.4); Platelet Count 285 K/mm3 (150-400); RDW Coefficient Variation 12.7 % (11.7-14.2); Red Blood Cell Count 2.82 M/mm3 (3.80-5.20); White Blood Cell Count 8.11 K/mm3 (4.00-11.30)
[2022-10-02 05:56] LABS: Bun/Creatinine Ratio 15.8 (12.0-20.0); Calcium, Blood 8.8 mg/dL (8.5-10.1); Creatinine, Blood 2.09 mg/dL (0.40-1.00); Magnesium, Blood 1.5 mg/dL (1.6-2.4); Potassium, Blood 3.7 mmol/L (3.5-5.5)
[2022-10-02 08:07] VITALS: BP 131/59
[2022-10-02 15:32] VITALS: BP 137/62
--- NOTE | 2022-10-02 16:20 | NUR ---
SHIFT SUMMARY PATIENT IS ALERT AND ORIENTED. PATIENT HAS HAD NO ACUTE EVENTS THIS SHIFT. VITAL SIGNS REVIEWED. PATIENT REFUSED TO WORK WITH PHYISCAL THERAPY THIS SHIFT. PATIENT HAS COMPLAINED OF PAIN, MEDICATED PER EMAR. PATIENT HAS NOT COMPLAINED OF NAUSEA, SOB OR VOMITTING THIS SHIFT. BED IN LOCKED AND LOWEST POSITION. CALL LIGHT IN PLACE. WILL MONITOR UNTIL SHIFT CHANGE.
[2022-10-02 19:21] VITALS: BP 116/52
--- NOTE | 2022-10-03 04:13 | NUR ---
SHIFT SUMMARY; NO ACUTE CHANGES OVERNIGHT. THE PT IS AXO X4 AND A 1 ASSIST TO THE BATHROOM. THE PT HAS ENDORSED SOME BACK/KNEE PAIN THIS EVENING FOR WHICH SHE WAS MEDICATED FOR WITH GOOD RELIEF. THE PT HAS BEEN SLEEPING IN BED FOR THE ENTIRETY OF THE NIGHT. THE PT DENIES ANY SOB, CHEST PAIN/PRESSURE OR N/V. CURRENTLY THE PT IS SLEEPING IN BED WITH THE BED IN THE LOWEST POSITION AND THE CALL LIGHT AT BEDSIDE.
[2022-10-03 04:44] VITALS: BP 147/67
[2022-10-03 06:27] LABS: Hematocrit 26.2 % (33.0-51.0); Hemoglobin 8.9 g/dL (11.5-16.0); Mean Corpuscular Volume 94 fL (80-100); Mean Platelet Volume 8.8 fL (9.1-12.4); Platelet Count 289 K/mm3 (150-400); RDW Coefficient Variation 12.6 % (11.7-14.2); RDW Standard Deviation 43.8 fL (35.1-46.3); Red Blood Cell Count 2.78 M/mm3 (3.80-5.20); White Blood Cell Count 7.46 K/mm3 (4.00-11.30)
[2022-10-03 06:49] LABS: Albumin, Blood 2.9 g/dL (3.4-5.0); Albumin/Globulin Ratio 0.8 (0.8-1.8); Bilirubin, Total 0.4 mg/dL (0.1-1.0); Bun/Creatinine Ratio 16.3 (12.0-20.0); Calcium, Blood 8.7 mg/dL (8.5-10.1); Creatinine, Blood 1.72 mg/dL (0.40-1.00); Globulin, Blood 3.6 g/dL (2.2-4.0); Potassium, Blood 3.7 mmol/L (3.5-5.5); Total Protein, Blood 6.5 g/dL (6.4-8.2)
[2022-10-03 08:21] VITALS: BP 137/72
--- NOTE | 2022-10-03 15:48 | NUR ---
PT AWAKE AND UP TO BSC DURING SHIFT REPORT. PT IS A 1P ASSIST USING FWW TO BSC. 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 BRUISING AND SWELLING WELL TO BOTH KNEES D/T RECENT FALL, MAKING MOBILITY MORE DIFFICULT. SITTING UP TO EOB FOR MEALS WITH ASSIST. DR WOODRUFF IN TO SEE PT THIS AM, DISCUSSING PLAN OF CARE AND DISCHARGE ORDERS. PT INSTRUCTED TO AVOID NSAIDS FOR PAIN D/T RENAL FUNCTION. D/C ORDERS PLACED. PT NOTIFIED AND DAUGHTER OF D/C AND TO BRING CLOTHES. PT'S DAUGHTER ASSISTED PT IN GETTING DRESSED. PT ASSISTED OUT TO DAUGHTER'S CAR VIA W/C WHEN READY. D/C INSTRUCTIONS REVIEWED WITH PT; VERBALIZED UNDERSTANDING. DENIED FURTHER NEEDS.
== END 2022-10-03 13:00 | disposition home or self-care (01) | DRG 683 ==
LOC: ER 00:42 → MEDS 00:43
PROVIDERS: Internal Medicine; Student in an Organized Health Care Education/Training Program; ADMIT Student in an Organized Health Care Education/Training Program
DX: N17.9 Acute kidney failure, unspecified (principal); I13.0 Hypertensive heart and chronic kidney disease with heart failure and stage 1 through stage 4 chronic kidney disease, or unspecified chronic kidney disease; I50.42 Chronic combined systolic (congestive) and diastolic (congestive) heart failure; E11.22 Type 2 diabetes mellitus with diabetic chronic kidney disease; Z66 Do not resuscitate; D63.1 Anemia in chronic kidney disease; E83.42 Hypomagnesemia; I25.10 Atherosclerotic heart disease of native coronary artery without angina pectoris; K21.9 Gastro-esophageal reflux disease without esophagitis; N18.4 Chronic kidney disease, stage 4 (severe); E78.5 Hyperlipidemia, unspecified; M54.50 Low back pain, unspecified; E03.9 Hypothyroidism, unspecified; S80.02XA Contusion of left knee, initial encounter; J45.909 Unspecified asthma, uncomplicated; M19.90 Unspecified osteoarthritis, unspecified site; I25.2 Old myocardial infarction; Z90.49 Acquired absence of other specified parts of digestive tract; Z98.890 Other specified postprocedural states; Z95.5 Presence of coronary angioplasty implant and graft; Z91.81 History of falling; Z79.4 Long term (current) use of insulin; Z79.01 Long term (current) use of anticoagulants; Z79.82 Long term (current) use of aspirin; Z79.890 Hormone replacement therapy; Z79.899 Other long term (current) drug therapy
CPT/HCPCS: 36415; 51701; 71046; 73562-LT; 76770; 80048; 80053; 81001; 82728; 82947; 83540; 83550; 83735; 84484; 85025; 85027; 93005; 93010; 94760; 96365; 96366; 96372; 97110; 97161; 97166; 97535; 99285-25; A9270; G0378; J1644; J1815; J2405; J3475; J7120

== ENCOUNTER 2023-03-17 10:41 | Emergency (ER) | payer OTHER ==
[~2023-03-17] VITALS: Ht 162.6 cm; Wt 79.4 kg
[~2023-03-17 10:41] MED LIST changes: +FURO40 PO; +LIPITOR80 MG PO; +METOPROLOL TART25 MG PO; +TELMISARTAN80 MG PO; +TOUJEO SOL300 UNIT/2 SC
[2023-03-17 11:09] LABS: BASOPHILS ABSOLUTE AUTO 0.07 K/mm3 (0.00-0.23); BASOPHILS PERCENT AUTO 1 % (0-2); EOSINOPHILS ABSOLUTE AUTO 0.06 K/mm3 (0.00-0.68); EOSINOPHILS PERCENT AUTO 0 % (0-6); Hematocrit 25.7 % (33.0-51.0); Hemoglobin 8.3 g/dL (11.5-16.0); IMMATURE GRAN ABSOLUTE AUTO 0.07 K/mm3 (0.00-0.10); IMMATURE GRAN PERCENT AUTO 1 % (0-1); LYMPHOCYTES ABSOLUTE AUTO 1.13 K/mm3 (0.84-5.20); LYMPHOCYTES PERCENT AUTO 8 % (21-46); MONOCYTES ABSOLUTE AUTO 1.37 K/mm3 (0.16-1.47); MONOCYTES PERCENT AUTO 10 % (4-13); Mean Corpuscular HGB 31.2 pg (26.0-34.0); Mean Corpuscular HGB Conc 32.3 g/dL (31.5-36.5); Mean Corpuscular Volume 97 fL (80-100); Mean Platelet Volume 8.4 fL (9.1-12.4); NEUTROPHILS ABSOLUTE AUTO 11.29 K/mm3 (1.96-9.15); NEUTROPHILS PERCENT AUTO 81 % (41-73); Platelet Count 569 K/mm3 (150-400); RDW Coefficient Variation 12.9 % (11.7-14.2); RDW Standard Deviation 45.1 fL (35.1-46.3); Red Blood Cell Count 2.66 M/mm3 (3.80-5.20); White Blood Cell Count 13.99 K/mm3 (4.00-11.30)
[2023-03-17 11:29] LABS: Albumin/Globulin Ratio 0.7 (0.8-1.8); Bilirubin, Total 0.6 mg/dL (0.1-1.0); Bun/Creatinine Ratio 14.7 (12.0-20.0); Calcium, Blood 8.8 mg/dL (8.5-10.1); Creatinine, Blood 1.7 mg/dL (0.40-1.00); Globulin, Blood 4.5 g/dL (2.2-4.0); Potassium, Blood 4.1 mmol/L (3.5-5.5); Total Protein, Blood 7.5 g/dL (6.4-8.2)
[2023-03-17 14:15] VITALS: BP 142/84
== END 2023-03-17 14:30 | disposition home or self-care (01) ==
LOC: ER 10:41
PROVIDERS: Emergency Medicine
DX: I50.9 Heart failure, unspecified (principal); E11.9 Type 2 diabetes mellitus without complications; I25.10 Atherosclerotic heart disease of native coronary artery without angina pectoris; I25.2 Old myocardial infarction; K21.9 Gastro-esophageal reflux disease without esophagitis; Z79.899 Other long term (current) drug therapy; Z79.82 Long term (current) use of aspirin
CPT/HCPCS: 71045; 80053; 83880; 84484; 85025; 93005; 93010; 96374; 99285-25; J1940

== ENCOUNTER → 2023-04-14 | Outpatient (CLI) | payer OTHER ==
[~2023-04-14] MED LIST changes: +DICY20 PO
[2023-04-14 15:49] LABS: BASOPHILS PERCENT AUTO 1 % (0-2); EOSINOPHILS ABSOLUTE AUTO 0.65 K/mm3 (0.00-0.68); EOSINOPHILS PERCENT AUTO 9 % (0-6); Hematocrit 29.3 % (33.0-51.0); Hemoglobin 9.7 g/dL (11.5-16.0); IMMATURE GRAN ABSOLUTE AUTO 0.02 K/mm3 (0.00-0.10); IMMATURE GRAN PERCENT AUTO 0 % (0-1); LYMPHOCYTES ABSOLUTE AUTO 1.57 K/mm3 (0.84-5.20); LYMPHOCYTES PERCENT AUTO 22 % (21-46); MONOCYTES ABSOLUTE AUTO 0.49 K/mm3 (0.16-1.47); MONOCYTES PERCENT AUTO 7 % (4-13); Mean Corpuscular HGB 31.5 pg (26.0-34.0); Mean Corpuscular HGB Conc 33.1 g/dL (31.5-36.5); Mean Corpuscular Volume 95 fL (80-100); Mean Platelet Volume 9.9 fL (9.1-12.4); NEUTROPHILS ABSOLUTE AUTO 4.23 K/mm3 (1.96-9.15); NEUTROPHILS PERCENT AUTO 60 % (41-73); Platelet Count 356 K/mm3 (150-400); RDW Coefficient Variation 13.2 % (11.7-14.2); RDW Standard Deviation 46.3 fL (35.1-46.3); Red Blood Cell Count 3.08 M/mm3 (3.80-5.20); White Blood Cell Count 7.06 K/mm3 (4.00-11.30)
[2023-04-14 16:19] LABS: Albumin, Blood 3.7 g/dL (3.4-5.0); Albumin/Globulin Ratio 0.9 (0.8-1.8); Bilirubin, Total 0.5 mg/dL (0.1-1.0); Bun/Creatinine Ratio 26.4 (12.0-20.0); Creatinine, Blood 2.08 mg/dL (0.40-1.00); Globulin, Blood 4.1 g/dL (2.2-4.0); Potassium, Blood 4.2 mmol/L (3.5-5.5); Total Protein, Blood 7.8 g/dL (6.4-8.2)
== END ==
LOC: LAB SHORT 15:35 → LAB 15:35
PROVIDERS: Nurse Practitioner Family
DX: R10.813 Right lower quadrant abdominal tenderness (principal)
CPT/HCPCS: 80053; 85025

== ENCOUNTER 2023-04-15 10:30 | Emergency (ER) | payer OTHER ==
[~2023-04-15] VITALS: Ht 162.6 cm; Wt 85.3 kg
[~2023-04-15 10:30] MED LIST changes: -DICY20 PO
[2023-04-15 10:53] VITALS: BP 106/67
[2023-04-15 11:22] LABS: Source, Urine Clean Catch
[2023-04-15 11:26] LABS: BASOPHILS ABSOLUTE AUTO 0.09 K/mm3 (0.00-0.23); BASOPHILS PERCENT AUTO 1 % (0-2); EOSINOPHILS ABSOLUTE AUTO 0.86 K/mm3 (0.00-0.68); EOSINOPHILS PERCENT AUTO 11 % (0-6); Hematocrit 29.9 % (33.0-51.0); Hemoglobin 9.9 g/dL (11.5-16.0); IMMATURE GRAN ABSOLUTE AUTO 0.03 K/mm3 (0.00-0.10); IMMATURE GRAN PERCENT AUTO 0 % (0-1); LYMPHOCYTES ABSOLUTE AUTO 1.66 K/mm3 (0.84-5.20); LYMPHOCYTES PERCENT AUTO 20 % (21-46); MONOCYTES ABSOLUTE AUTO 0.49 K/mm3 (0.16-1.47); MONOCYTES PERCENT AUTO 6 % (4-13); Mean Corpuscular HGB 31.2 pg (26.0-34.0); Mean Corpuscular HGB Conc 33.1 g/dL (31.5-36.5); Mean Corpuscular Volume 94 fL (80-100); Mean Platelet Volume 9.2 fL (9.1-12.4); NEUTROPHILS ABSOLUTE AUTO 5.04 K/mm3 (1.96-9.15); NEUTROPHILS PERCENT AUTO 62 % (41-73); Platelet Count 340 K/mm3 (150-400); RDW Coefficient Variation 13.1 % (11.7-14.2); RDW Standard Deviation 45.2 fL (35.1-46.3); Red Blood Cell Count 3.17 M/mm3 (3.80-5.20); White Blood Cell Count 8.17 K/mm3 (4.00-11.30)
[2023-04-15 11:35] LABS: Appearance, Urine Hazy (Clear); Bilirubin, Urine Neg (Neg); Blood, Urine Neg (Neg); Color, Urine Yellow (P-Yellow); Glucose Qualitative, Urine Neg (Neg); Ketones, Urine Neg (Neg); Leukocyte Esterase, Urine 2+ (Neg); Nitrite, Urine Neg (Neg); Protein, Urine 1+ (Neg); Specific Gravity, Urine 1.015 (1.003-1.022); Urobilinogen, Urine NORM (Normal)
[2023-04-15 11:46] LABS: Bacteria Many /hpf; Red Blood Cells, Urine 0-2 /hpf (0-2); Squamous Epithelial Cells Mod /hpf (Few)
[2023-04-15 11:47] LABS: Albumin, Blood 3.7 g/dL (3.4-5.0); Albumin/Globulin Ratio 0.9 (0.8-1.8); Bilirubin, Total 0.5 mg/dL (0.1-1.0); Bun/Creatinine Ratio 24.4 (12.0-20.0); Calcium, Blood 8.9 mg/dL (8.5-10.1); Creatinine, Blood 2.17 mg/dL (0.40-1.00); Globulin, Blood 4.3 g/dL (2.2-4.0); Transitional Epithelial Cells Rare /hpf (0-Rare)
[2023-04-15] MEDS ORDERED: DICY20 PO (14:17)
== END 2023-04-15 14:37 | disposition home or self-care (01) ==
LOC: ER 10:30
PROVIDERS: Physician Assistant
DX: R10.84 Generalized abdominal pain (principal); E11.9 Type 2 diabetes mellitus without complications; Z79.82 Long term (current) use of aspirin; Z79.02 Long term (current) use of antithrombotics/antiplatelets; Z79.899 Other long term (current) drug therapy
CPT/HCPCS: 80053; 81001; 83690; 85025; 87086; 99284

== ENCOUNTER 2023-06-19 16:41 | Emergency (ER) | payer OTHER ==
[~2023-06-19] VITALS: Ht 162.6 cm; Wt 95.2 kg
[~2023-06-19 16:41] MED LIST changes: +DICY20 PO
[2023-06-19] MEDS ORDERED: METOPROLOL SUCC25 MG PO (16:53)
[2023-06-19] MEDS ORDERED: TOUJEO SOL300 UNIT/2 (16:53)
[2023-06-19] MEDS ORDERED: KLOR-CON 1010 ME9 PO (16:53)
[2023-06-19] MEDS ORDERED: Morphine Sulfate 10 MG/ML 1MLSYR IV ONE (17:20)
[2023-06-19] MEDS ORDERED: Ondansetron HCl 2 MG / ML 2ML Vial IV ONE (17:20)
[2023-06-19 17:28] LABS: BASOPHILS ABSOLUTE AUTO 0.07 K/mm3 (0.00-0.23); BASOPHILS PERCENT AUTO 1 % (0-2); EOSINOPHILS ABSOLUTE AUTO 0.55 K/mm3 (0.00-0.68); EOSINOPHILS PERCENT AUTO 9 % (0-6); Hematocrit 30.3 % (33.0-51.0); IMMATURE GRAN ABSOLUTE AUTO 0.01 K/mm3 (0.00-0.10); IMMATURE GRAN PERCENT AUTO 0 % (0-1); LYMPHOCYTES ABSOLUTE AUTO 1.44 K/mm3 (0.84-5.20); LYMPHOCYTES PERCENT AUTO 22 % (21-46); MONOCYTES ABSOLUTE AUTO 0.47 K/mm3 (0.16-1.47); MONOCYTES PERCENT AUTO 7 % (4-13); Mean Corpuscular HGB 30.7 pg (26.0-34.0); Mean Corpuscular Volume 93 fL (80-100); Mean Platelet Volume 8.4 fL (9.1-12.4); NEUTROPHILS ABSOLUTE AUTO 3.92 K/mm3 (1.96-9.15); NEUTROPHILS PERCENT AUTO 61 % (41-73); Platelet Count 307 K/mm3 (150-400); RDW Coefficient Variation 14.7 % (11.7-14.2); RDW Standard Deviation 50.4 fL (35.1-46.3); Red Blood Cell Count 3.26 M/mm3 (3.80-5.20); White Blood Cell Count 6.46 K/mm3 (4.00-11.30)
[2023-06-19 17:50] LABS: Albumin, Blood 3.5 g/dL (3.4-5.0); Albumin/Globulin Ratio 0.9 (0.8-1.8); Bilirubin, Total 0.5 mg/dL (0.1-1.0); Bun/Creatinine Ratio 25.5 (12.0-20.0); Calcium, Blood 8.8 mg/dL (8.5-10.1); Creatinine, Blood 2.2 mg/dL (0.40-1.00); Globulin, Blood 3.7 g/dL (2.2-4.0); Potassium, Blood 4.4 mmol/L (3.5-5.5); Total Protein, Blood 7.2 g/dL (6.4-8.2)
[2023-06-19 20:00] VITALS: BP 163/87
[2023-06-19 21:25] LABS: Source, Urine Clean Catch
[2023-06-19] MEDS ORDERED: ONDA4ODT MM (21:27)
[2023-06-19 21:28] LABS: Bilirubin, Urine Neg (Neg); Blood, Urine Neg (Neg); Glucose Qualitative, Urine Neg (Neg); Ketones, Urine Neg (Neg); Leukocyte Esterase, Urine 1+ (Neg); Nitrite, Urine Neg (Neg); Protein, Urine Neg (Neg); Urobilinogen, Urine NORM (Normal)
[2023-06-19 21:36] LABS: Appearance, Urine Clear (Clear); Color, Urine Pale Yellow (P-Yellow)
[2023-06-19 21:39] LABS: Bacteria Not Seen /hpf; Red Blood Cells, Urine Not Seen /hpf (0-2); Squamous Epithelial Cells Few /hpf (Few); White Blood Cells, Urine 0-2 /hpf (0-5)
[2023-06-19] MEDS ORDERED: RX Prepack 2 Tabs Ondansetron ODT 4MG UD ONE (22:10)
== END 2023-06-19 22:26 | disposition home or self-care (01) ==
LOC: ER 16:41
PROVIDERS: Student in an Organized Health Care Education/Training Program
DX: K55.1 Chronic vascular disorders of intestine (principal); E11.22 Type 2 diabetes mellitus with diabetic chronic kidney disease; N18.9 Chronic kidney disease, unspecified; D63.1 Anemia in chronic kidney disease; E87.1 Hypo-osmolality and hyponatremia; I25.10 Atherosclerotic heart disease of native coronary artery without angina pectoris; I25.2 Old myocardial infarction; K21.9 Gastro-esophageal reflux disease without esophagitis; Z79.4 Long term (current) use of insulin; Z79.82 Long term (current) use of aspirin; Z79.890 Hormone replacement therapy; Z79.899 Other long term (current) drug therapy
CPT/HCPCS: 74174; 80053; 81001; 83690; 85025; 96374-59; 96375-59; 99285-25; A9270; J2270; J2405; Q9967

== ENCOUNTER 2023-10-19 12:54 | Inpatient (IN) | payer OTHER ==
[~2023-10-19] VITALS: Ht 162.6 cm; Wt 94.0 kg
[~2023-10-19 12:54] MED LIST changes: +KLOR-CON 1010 ME9 PO; -LIPITOR80 MG PO; +METOPROLOL SUCC25 MG PO; +ONDA4ODT MM; +TELM40 PO
[2023-10-19 13:54] LABS: BASOPHILS ABSOLUTE AUTO 0.03 K/mm3 (0.00-0.23); BASOPHILS PERCENT AUTO 0 % (0-2); EOSINOPHILS ABSOLUTE AUTO 0.01 K/mm3 (0.00-0.68); EOSINOPHILS PERCENT AUTO 0 % (0-6); Hemoglobin 9.5 g/dL (11.5-16.0); IMMATURE GRAN ABSOLUTE AUTO 0.03 K/mm3 (0.00-0.10); IMMATURE GRAN PERCENT AUTO 0 % (0-1); LYMPHOCYTES ABSOLUTE AUTO 0.58 K/mm3 (0.84-5.20); LYMPHOCYTES PERCENT AUTO 6 % (21-46); MONOCYTES PERCENT AUTO 8 % (4-13); Mean Corpuscular HGB 31.6 pg (26.0-34.0); Mean Corpuscular HGB Conc 32.8 g/dL (31.5-36.5); Mean Corpuscular Volume 96 fL (80-100); Mean Platelet Volume 9.3 fL (9.1-12.4); NEUTROPHILS ABSOLUTE AUTO 8.68 K/mm3 (1.96-9.15); NEUTROPHILS PERCENT AUTO 86 % (41-73); Platelet Count 272 K/mm3 (150-400); RDW Coefficient Variation 14.4 % (11.7-14.2); RDW Standard Deviation 50.5 fL (35.1-46.3); Red Blood Cell Count 3.01 M/mm3 (3.80-5.20); White Blood Cell Count 10.13 K/mm3 (4.00-11.30)
[2023-10-19 13:57] LABS: Albumin, Blood 3.5 g/dL (3.4-5.0); Albumin/Globulin Ratio 0.8 (0.8-1.8); Bilirubin, Total 1.4 mg/dL (0.1-1.0); Bun/Creatinine Ratio 21.9 (12.0-20.0); Calcium, Blood 8.9 mg/dL (8.5-10.1); Creatinine, Blood 1.96 mg/dL (0.40-1.00); Globulin, Blood 4.6 g/dL (2.2-4.0); Potassium, Blood 4.7 mmol/L (3.5-5.5); Total Protein, Blood 8.1 g/dL (6.4-8.2)
[2023-10-19] MEDS ORDERED: Nitroglycerin 0.4 MG SUBL SL ONE (15:05)
[2023-10-19] MEDS ORDERED: Acetaminophen 325 MG TABLET PO PRN (19:05)
[2023-10-19] MEDS ORDERED: Ondansetron HCl 2 MG / ML 2ML Vial IV PRN (19:05)
[2023-10-19 19:54] LABS: Anti-Xa UFH, PHA Monitoring <0.10 IU/mL; International Normalized Ratio 1.01; Prothrombin Time Results 10.8 Sec (9.7-11.5)
[2023-10-19] MEDS ORDERED: Insulin Glargine-Yfgn 100 Unit/mL 3 ML SYR SC SCH (20:00)
[2023-10-19 20:18] VITALS: BP 118/73
[2023-10-19] MEDS ORDERED: Heparin Sodium,Porcine/0.5 NS 500 ML IV SCH (20:25)
[2023-10-19] MEDS ORDERED: Heparin Sodium 5000 Units/ML 1ML MDV IV ONE (20:25)
--- NOTE | 2023-10-19 23:22 | NUR ---
PT IS ALERT AND ORIENTED X 4, COOPERATIVE WITH CARE AND ABLE TO MAKE NEEDS KNOWN. SHE IS VERY HARD OF HEARING AND HER GRANDDAUGHTER AND PT SAID THAT THEY ARE WORKING ON GETTING HER HEARING AIDS. SHE IS ON RA AND MAINTAINING 02 SATURATION ABOVE 92% AND DENIES SOB. HR SR 80'S SHE DENIES CHEST PAIN/PRESSURE AT THIS TIME AND BP IS STABLE. PT C/O INTERMITTENT R SIDE ABD PAIN X 3 YEARS. SHE IS CONTINENT OF BLADDER AND BOWELS AND TOLERATES USING BEDSIDE COMMODE WITH SBA WELL. 20 G IV TO R AC INFUSING HEPARIN PER EMAR. TROPONINS TRENDING DOWN AND MD NOTIFIED. CARDIOLOGY CONSULT CALLED IN FOR AM OF 10/20/23. PT NPO AT MIDNIGHT DUE TO CARDIOLOGY CONSULT IN AM. AT BASELINE PT WALKS AROUND WITHOUT ASSISTANCE. ACCORDING TO PT AND HER GRANDDAUGHTER PTS SON IS HER MAIN CAREGIVER AND PT'S DAUGHTER TAKES CARE OF HER MEDICATIONS. PT'S HOME MEDICATION LIST NOT COMPLETE DUE TO THE FAMILY MEMBER WHO TAKES CARE OF HER MEDICATIONS NOT BEING HERE. PT CURRENTLY RESTING IN BED AND CALL LIGHT WITHIN REACH.
[2023-10-19 23:48] VITALS: BP 135/75
[2023-10-20] VITALS (7 sets, daily range): BP systolic 103–125; BP diastolic 49–88
[2023-10-20] MEDS ORDERED: Insulin Human Lispro 100 Units/ML 3ML Syringe SC SCH
[2023-10-20] MEDS ORDERED: Morphine Sulfate 4 MG/1 ML Injection IV PRN (02:35)
[2023-10-20 03:34] LABS: Hematocrit 26.9 % (33.0-51.0); Hemoglobin 8.7 g/dL (11.5-16.0); Mean Corpuscular HGB 31.1 pg (26.0-34.0); Mean Corpuscular HGB Conc 32.3 g/dL (31.5-36.5); Mean Corpuscular Volume 96 fL (80-100); Mean Platelet Volume 9.3 fL (9.1-12.4); Platelet Count 267 K/mm3 (150-400); RDW Coefficient Variation 14.3 % (11.7-14.2); RDW Standard Deviation 50.4 fL (35.1-46.3); White Blood Cell Count 13.47 K/mm3 (4.00-11.30)
[2023-10-20] MEDS ORDERED: Dose Adjust by Pharmacy XX STA ×3 (03:48→17:34)
--- NOTE | 2023-10-20 03:48 | NUR ---
AROUND 0230 PT COMPLAINED OF NAUSEA AND CHEST PAIN THAT SHE DESCRIBED SOMEONE SITTING ON HER CHEST AND SOB. WHEN SHE FIRST ARRIVED TO HOSPITAL SHE SAID SHE WAS HAVING SIMILAR PAIN BUT THIS TIME IT WAS WORSE. NO TELE CHANGES, BP STABLE. 2L NC APPLIED TO PT. MD NOTIFIED AND 2MG IV MORPHINE ADMINISTERED PER ORDERS. PT SAID PAIN QUICKLY WENT DOWN TO 2/10 AND SHE WAS BREATHING EASIER. PT FELL ASLEEP SHORTLY AFTER WITH EVEN UNLABORED BREATHING. PT STILL RESTING AND CALL LIGHT WITHIN REACH.
[2023-10-20 03:52] LABS: Bun/Creatinine Ratio 24.7 (12.0-20.0); Calcium, Blood 8.9 mg/dL (8.5-10.1); Creatinine, Blood 1.9 mg/dL (0.40-1.00); Potassium, Blood 4.2 mmol/L (3.5-5.5)
--- NOTE | 2023-10-20 04:19 | NUR ---
PTS CHEST PAIN RETURNED. 2MG MORPHINE GIVEN PER EMAR. EKG PERFORMED AND CHARGE NURSE SPEAKING WITH MD. PT SAID MORPHINE HAS HELPED ALLEVIATE SOME OF HER PAIN BUT NOT ALL OF IT. 06/04 FOR CHEST PAIN AND SHE SAID HER L ARM HURTS MORE THAN HER CHEST.
[2023-10-20] MEDS ORDERED: Nitroglycerin 0.4 MG SUBL SL PRN (04:30)
[2023-10-20] MEDS ORDERED: FentaNYL Citrate 50 MCG/ML 2 ML Injection IV PRN (05:30)
--- NOTE | 2023-10-20 05:31 | NUR ---
MD TO BEDSIDE WHILE THIS RN WHO IS PRIMARY NURSE WAS AT BREAK. PER BREAK NURSE, MD APPLIED PRESSURE TO PT'S CHEST AND HER PAIN INCREASED. BREAK NURSE SAID MD SUSPECTING MUSKULOSKELETAL PAIN AND ADVISES TO ADMINISTER FETANYL NEXT TIME PT C/O CHEST/ABD/NECK/L ARM PAIN AND IF IT RELEIVES PT'S PAIN THEN D/C THE MORPHINE. PT CURRENTLY SLEEPING WITH EVEN AND UNLABORED BREATHING. HR ST 110'S AND BP STABLE. 02 SATURATION 95% AND ON 2L NC. CALL LIGHT WITHIN REACH.
[2023-10-20] MEDS ORDERED: Levothyroxine Sodium 0.1 MG Tab PO SCH (06:00)
[2023-10-20] MEDS ORDERED: Aspirin 81 MG Chew PO SCH (09:00)
[2023-10-20] MEDS ORDERED: Metoprolol Succinate 25 MG TABCR PO SCH (09:00)
[2023-10-20] MEDS ORDERED: Atorvastatin 40 MG Tab PO SCH (09:00)
[2023-10-20] MEDS ORDERED: Heparin Sodium 5000 Units/ML 1ML MDV IV ONE (10:50)
[2023-10-20] MEDS ORDERED: Caffeine Citrated 60 MG/3 ML Vial ONE (12:32)
[2023-10-20] MEDS ORDERED: Regadenoson 0.4 MG/5 ML SYRINGE ONE (12:32)
--- NOTE | 2023-10-20 18:43 | NUR ---
SHIFT SUMMARY PT A/OX4 AND COOPERATIVE OF CARE. PT TIRED THROUGHOUT SHIFT AND SLEPT OFF AND ON. PT VSS THROUGOUT SHIFT WITH O2 SATS IN THE 90'S ON 2-3L NC. NO REPORT OF CHEST PAIN/PRESSURE THROUGHOUT SHIFT. NO REPOR TOF SOB/DYSPNEA THROUGHOUT SHIFT. PT SEEN BY GAS DESULFURIZER, FIRST PORTION OF STRESS TEST DONE TODAY, SECOND PORTION IN THE MORNING. PT TO BE NPO AFTER BREAKFAST AND NO CHOCOLATE, CAFFEINE, OR DECAF COFFEE. FAMILY TO BESIDE DURING SHIFT AND UPDATED ON GAS DESULFURIZER CONVERSATION WITH PT. PT UP TO BSC, SBA TOLERATED WELL. 200 ML OUT AT THAT TIME. PT BLADDER SCANNED POST VOID PT HAS NOT VOIDED DURING SHIFT. MD NOTIFIED AND STRAIGHT CATH ORDERED AND DONE. ADDITIONAL 550 VIA [employer] Pharm[employer]IGHT CATH. HEP GTT RUNNING PER ORDER.
[2023-10-21] VITALS (10 sets, daily range): BP systolic 84–100; BP diastolic 48–59
[2023-10-21] MEDS ORDERED: Clarify Drug Order XX ONE (00:10)
[2023-10-21 04:12] LABS: Hematocrit 23.1 % (33.0-51.0); Hemoglobin 7.5 g/dL (11.5-16.0); Mean Platelet Volume 9.3 fL (9.1-12.4); Platelet Count 276 K/mm3 (150-400)
--- NOTE | 2023-10-21 04:57 | NUR ---
SHIFT SUMMARY. SHIFT HAS BEEN UNREMARKABLE. PT HAS BEEN SOMNOLENT THROUGHOUT SHIFT BUT EASILY AROUSABLE AND ALERT WHEN AWAKE, HAS REMAINED AOX3-4 WHEN AWAKE, MAKES NEEDS KNOWN. ABLE TO REPOSITION SELF INDEPENDENTLY. PT HAS HAD NO URINE OUTPUT THIS SHIFT. PROMPTED FOR NEED TO VOID BUT PT DENIES NEED TO VOID THUS FAR. BLADDER SCAN REVEALED BLADDER VOLUME OF 244 MLS. CONTINUING TO MONITOR. PAIN HAS BEEN WELL MANAGED VIA EMAR AND PT HAS NOT COMPLAINED OF ANY CHEST PAIN THIS SHIFT THUS FAR. VITALS STABLE, SOFT BP. MAINTAINING ADEQUATE SATURATION ON 3 L O2 VIA NC. TELE ON THROUGHOUT SHIFT WITH NO ACUTE CHANGES OR EVENTS. BED LOCKED IN LOWEST POSITION. CALL LIGHT LEFT WITHIN REACH. CONTINUING TO MONITOR.
[2023-10-21 08:34] LABS: Hematocrit 23.3 % (33.0-51.0); Hemoglobin 7.7 g/dL (11.5-16.0)
[2023-10-21 12:43] LABS: Hematocrit 24.5 % (33.0-51.0); Hemoglobin 7.9 g/dL (11.5-16.0)
[2023-10-21] MEDS ORDERED: Lisinopril 5 MG Tab PO SCH (13:00)
[2023-10-21] MEDS ORDERED: Isosorbide Mononitrate 30 MG TABCR PO SCH (13:00)
[2023-10-21] MEDS ORDERED: Insulin Human Lispro 100 Units/ML 3ML Syringe SC SCH (16:30)
[2023-10-21 16:57] LABS: Hematocrit 23.8 % (33.0-51.0); Hemoglobin 7.8 g/dL (11.5-16.0)
--- NOTE | 2023-10-21 17:48 | NUR ---
PT FAMILY MEMBER, LISET, CONTACTED AND UPDATED PER PT REQUEST. LISET NOTIFIED THAT PALLIATIVE CARE TEAM WERE HOPING TO DISCUSS PT'S FUTURE CARE WITH PT AND FAMILY P REQUESTED TO HAVE FAMILY PRESENT FOR THE DECISION. LISET INFORMED THIS RN THAT SHE WOULD CONTACT FAMILY AND FORWARD THE REQUEST.
--- NOTE | 2023-10-21 18:27 | NUR ---
SHIFT SUMMARY PT A/OX4 AND COOPERATIVE OF CARE. PT SOLMNOLENT THIS MORNING, MORE ALERT THIS AFTERNOON. PT HAD SECOND PORTION OF STRESS TEST DONE TODAY. MANAGER RECOVERY TO PT'S ROOM AND UPDATED PT AND FAMILY THAT PT NOT A CANDIDIATE FOR ANGIO, MED MANAGEMENT. PALLIATIVE CARE UPDATED. THIS RN NOTIFIED PAILLIATIVE THAT PT WOULD LIKE TO HAVE FAMILY PRESENT FOR ANY FUTRE OF CARE DISCUSSIONS AND CODE STATUS. PT HAD SOFT BP'S DURING SHIFT, MD AWARE. OTHER VSS THROUGHOUT SHIFT WITH O2 SATS IN THE 90'S ON 2L NC. PT UP TO CHAIR AND WORKED WITH PHYSICAL THERAPY TODAY.
[2023-10-21 20:23] LABS: Hematocrit 23.1 % (33.0-51.0); Hemoglobin 7.5 g/dL (11.5-16.0)
[2023-10-21] MEDS ORDERED: NS 500 ML IV ONE (21:00)
[2023-10-22] VITALS (19 sets, daily range): BP systolic 95–121; BP diastolic 48–81
[2023-10-22 04:15] LABS: Hematocrit 21.6 % (33.0-51.0); Hemoglobin 7.1 g/dL (11.5-16.0); Mean Corpuscular HGB 30.7 pg (26.0-34.0); Mean Corpuscular HGB Conc 32.9 g/dL (31.5-36.5); Mean Corpuscular Volume 94 fL (80-100); Mean Platelet Volume 9.1 fL (9.1-12.4); Platelet Count 279 K/mm3 (150-400); RDW Coefficient Variation 13.9 % (11.7-14.2); RDW Standard Deviation 47.6 fL (35.1-46.3); Red Blood Cell Count 2.31 M/mm3 (3.80-5.20)
[2023-10-22 04:38] LABS: Albumin, Blood 2.7 g/dL (3.4-5.0); Anion Gap 13 mmol/L (3-11); Blood Urea Nitrogen 72 mg/dL (8-24); Bun/Creatinine Ratio 26.8 (12.0-20.0); CO2, Blood 20 mmol/L (21-32); Calcium, Blood 8.2 mg/dL (8.5-10.1); Chloride, Blood 103 mmol/L (98-108); Creatinine, Blood 2.69 mg/dL (0.40-1.00); Ferritin, Serum 301 ng/mL (8-252); Glomerular Filtration Rate 17 (60-); Glucose, Blood 113 mg/dL (70-99); Iron Serum 22 ug/dL (50-170); Magnesium, Blood 1.6 mg/dL (1.6-2.4); Percent Saturation 15.7 % (15.0-50.0); Phosphorus, Blood 4.1 mg/dL (2.5-4.9); Potassium, Blood 4.5 mmol/L (3.5-5.5); Sodium, Blood 131 mmol/L (136-145); Total Iron Binding Capacity 140 ug/dL (250-450)
--- NOTE | 2023-10-22 05:16 | NUR ---
SHIFT SUMMARY. PT HAS OVERALL DONE WELL OVER COURSE OF SHIFT. HAS REMAINED SOMNOLENT BUT EASILY ROUSABLE AND ALERT WHEN AWAKE. ABLE TO COMMUNICATE NEEDS WELL. MINIMAL URINE OUTPUT THIS SHIFT BUT PT HAS HAD MINIMAL INTAKE WELL. BP HAS BEEN SOFT OVERNIGHT, IMPROVED AFTER 500 ML BOLUS EARLY IN SHIFT. PT REPORTS INTERMITTENT BLE PAIN THAT IS ALLEVIATED WITH REPOSITIONING. TELE ON THROUGHOUT SHIFT WITH NO ACUTE CHANGES OR EVENTS. MAINTAINS ADEQUATE SATURATION ON 2-3 L O2 VIA NC. VITALS STABLE. BED LOCKED IN LOWEST POSITION. CALL LIGHT LEFT WITHIN REACH. CONTINUING TO MONITOR.
[2023-10-22] MEDS ORDERED: Furosemide 40 MG Tab PO SCH (09:00)
[2023-10-22] MEDS ORDERED: Empagliflozin 10 MG TAB PO SCH (09:00)
[2023-10-22] MEDS ORDERED: Furosemide 10 MG / ML 2ML Vial IV ONE ×2 (10:30→20:00)
[2023-10-22] MEDS ORDERED: NS 500 ML IV SCH (12:25)
--- NOTE | 2023-10-22 13:12 | NUR ---
Case Conference: Met with pt and her family for code status discussion. The patient had asked that family be present for any "major" decisions, however when we discussed code status, she very quickly stated she would not want to be resuscitated clarifying, "When it's your time it's your time." POLST completed and awaiting physician signature.
--- NOTE | 2023-10-22 19:20 | NUR ---
PT SUMMARY; PT'S FAMILY CAME IN TODAY ABLE TO DISCUSS ADVANCE CARE PLANNING WITH PALLIATIVE CARE NURSE, CODE STATUS SWITCHED TO DNR. PT AND FAMILY STILL AGREED TO INFUSE 1PRBC THEN ONE DOSE OF LASIX AFTER. VITALS HRR SR 70'S BBB, SBP 100-115'S MAP >65, SATS ABOVE 95% ON 2L OF O2, AFEBRILE. PT WAS BLADDER SCANNED ONCE WITH 450 URINE BLADDER RETAINED AND WAS ABLE TO VOID 350 VIA BSC. PT WAS C/O STOMACH PAIN AND NAUSEA AFTER DINNER ZOFRAN AND MORPHINE 2MG WAS GIVEN AND WAS EFFECTIVE. PT NOW RESTING IN BED CALL LIGHTS IN REACH WILL REPORT TO ONCOMING SHIFT
[2023-10-22] MEDS ORDERED: Ondansetron HCl 2 MG / ML 2ML Vial IV PRN (23:40)
[2023-10-23 03:39] VITALS: BP 125/82
[2023-10-23 03:40] LABS: Hematocrit 26.8 % (33.0-51.0); Mean Corpuscular HGB 30.6 pg (26.0-34.0); Mean Corpuscular HGB Conc 33.6 g/dL (31.5-36.5); Mean Corpuscular Volume 91 fL (80-100); Mean Platelet Volume 8.7 fL (9.1-12.4); Platelet Count 310 K/mm3 (150-400); RDW Coefficient Variation 14.3 % (11.7-14.2); Red Blood Cell Count 2.94 M/mm3 (3.80-5.20); White Blood Cell Count 7.88 K/mm3 (4.00-11.30)
[2023-10-23 03:54] LABS: Anion Gap 13 mmol/L (3-11); Blood Urea Nitrogen 78 mg/dL (8-24); Bun/Creatinine Ratio 31.2 (12.0-20.0); CO2, Blood 22 mmol/L (21-32); Calcium, Blood 8.7 mg/dL (8.5-10.1); Chloride, Blood 101 mmol/L (98-108); Glomerular Filtration Rate 19 (60-); Glucose, Blood 146 mg/dL (70-99); Magnesium, Blood 1.7 mg/dL (1.6-2.4); Phosphorus, Blood 3.9 mg/dL (2.5-4.9); Potassium, Blood 4.6 mmol/L (3.5-5.5); Sodium, Blood 131 mmol/L (136-145)
--- NOTE | 2023-10-23 05:11 | NUR ---
SHIFT SUMMARY. SHIFT HAS BEEN UNREMARKABLE. PT REMAINS SOMNOLENT BUT IS EASILY ROUSABLE AND ALERT WHEN AWAKE. MAKES NEEDS KNOWN. FAMILY HAS BEEN AT BEDSIDE THROUGHOUT SHIFT. HAS DENIED PAIN THROUGHOUT SHIFT. REPOSITIONS SELF INDEPENDENTLY. COMPLAINED OF SOME NAUSEA EARLY IN SHIFT THAT HAS BEEN WELL MANAGED VIA EMAR. VITALS STABLE, SOFT BP. TELE ON THROUGHOUT SHIFT WITH NO ACUTE CHANGES OR EVENTS THUS FAR. URINE OUTPUT REMAINS MINIMAL BUT HAS BEEN CHARTED APPROPRIATELY. BED LOCKED IN LOWEST POSITION. CALL LIGHT LEFT WITHIN REACH. CONTINUING TO MONITOR.
[2023-10-23 07:38] VITALS: BP 111/70
[2023-10-23] MEDS ORDERED: Heparin Sodium,Porcine 5,000 UNIT/0.5 ML SDV SC SCH (10:29)
[2023-10-23 11:12] VITALS: BP 121/73
--- NOTE | 2023-10-23 12:23 | NUR ---
AM NOTES; PT LEBRON GIL TO CREDIT PROFESSIONAL FOR ANGIO. PT WAS PRE MEDICATED FOR CONTRAST ALLERGY WITH STEROID AND PEPCID. ECHO WAS DONE AND DR VELÁZQUEZ WAS ABLE TO DISCUSS PLAN WITH THE PT. PT HAS BEEN CHEST PAIN FREE SINCE THIS MORNING. VITALS HAS BEEN STABLE. ALERT AND ORIENTED CALLS APPROPRIATELY. WILL CONTINUE TO MONITOR
--- NOTE | 2023-10-23 15:18 | NUR ---
Multiple family members present in pt's room today. According to bedside RN, one of the nieces was a nurse and wanted to chat with palliative care. I stopped by to say jeronimo, and introduced myself to the several people present other than pt's and son. Pt was smiling, stated she was enjoying the visit. Pt's niece stepped out of the room, stated the patient's son had summoned family from both [facility] and [place], stating they needed to come today if they wanted to see her before she . The niece introduced herself as an RN and suggest using simple layman terms when speaking to the patient, her and son, as the son has not been relaying correct information to the family thus far. I didn't get the opportunity to speak to the patient, her son or privately. Will attempt again tomorrow.
[2023-10-23] MEDS ORDERED: Darbepoetin Alfa In Albumn Sol 40 MCG/0.4 ML SC ONE (16:00)
[2023-10-23 16:13] VITALS: BP 96/61
[2023-10-23 18:33] LABS: Source, Urine Foley catheter
--- NOTE | 2023-10-23 18:35 | NUR ---
PT SUMMARY; MULTIPLE FAMILY AT BEDSIDE T/O SHIFT TODAY, ONE FAMILY MEMBER A NIECE CAME OUT OF THE ROOM AND SPOKE TO THIS RN ABOUT PLANS FOR THE PT, PT SON WAS TELLING FAMILY MEMBERS THAT PT MIGHT PASS AWAY SOON. THIS RN VERIFIED THAT PALLIATIVE RN DISCUSSED ADVANCE CARE PLANNING WITH THE FAMILY YESTERDAY 10/21 AND CHANGE PT'S CODE STATUS TO DNR AND ABOUT HOSPICE. PALLIATIVE RN WILL ATTEMPT AGAIN TOMORROW TO DISCUSS THIS MATTER. OTHERWISE PT'S VITALS HAS BEEN STABLE PT TRANSITIONED TO MEDICAL STATUS WIHT TELE. PT GOT UP IN THE BEDSIDE COMMODE A COUPLE TIMES TO URINATE. DR MOHAN CAME BY TO SEE PT AND ORDERED KIDNEY BILLIE, BILLIE TECH CALLED THIS RN THAT PT WAS RETAINING 700MLS URINE IN THE BLADDER. PT ABLE TO VOID 350 OUT, 500MLS URINE POST VOID RETAINED PER BLADDER SCAN PT WAS STRAIGHT CATH PER POLICY PT HAD 500MLS URINE OUT. DR MOHAN MADE AWARE ORDER O PLACE CATHER IN PLACE. UA SENT TO LAB. PT WAS MEDICATED ONCE FOR LEG PAIN. DECREASED APPETITE OFFERED NEPRO SHAKE FOR DINNER. PT NOW RESTING IN BED CALL LIGHTS IN REACH WILL REPORT TO ONCOMING SHIFT
[2023-10-23 18:36] LABS: Appearance, Urine Clear (Clear); Bilirubin, Urine Neg (Neg); Blood, Urine Neg (Neg); Glucose Qualitative, Urine 3+ (Neg); Ketones, Urine Neg (Neg); Leukocyte Esterase, Urine 1+ (Neg); Nitrite, Urine Neg (Neg); Protein, Urine Neg (Neg); Urobilinogen, Urine NORM (Normal)
[2023-10-23 18:41] LABS: Color, Urine Pale Yellow (P-Yellow)
[2023-10-23 18:42] LABS: Bacteria Mod /hpf; Red Blood Cells, Urine 0-2 /hpf (0-2); Squamous Epithelial Cells Few /hpf (Few)
[2023-10-23 20:08] VITALS: BP 109/70
[2023-10-23 22:19] VITALS: BP 129/76
--- NOTE | 2023-10-23 22:25 | NUR ---
TRANSFER NOTE PT ARRIVED FROM PCU. ALERT AND OREINTED. DX CP, DENIES CP AND CHEST PRESSURE. MED TELE ST. HOB ELEVATED FOR COMFORT. O2 AT 2L/MIN PER NC. RAILS UP X 2 AND CALL LIGHT IN REACH. AGREES TO USE CALL LIGHT IF HAS CP, ETC. ON STRICT I AND O. PCU REPORTED HX CAD, AN ANGIOGRAM IN 2021, AN NSTEMI WHICH CAUESD IRRECONSIBLE DAMAGE WITH EF OF 24%. DR MOHAN TO F/U WITH KIDNEY ISSUES, SNIDER IN PLACE FOR RESIDUAL. IS DIABETIC. ON PCU REPORTED TELE OF SR WITH BBB. CALM AND COOPERATIVE AT THIS TIME. WILL CONT TO MONITOR
--- NOTE | 2023-10-24 04:16 | NUR ---
ETHANOL MAINTENANCE MECHANIC SUMMARY VSS. PT ARRIVED ON FLOOR FROM PCU EARLIER IN THE SHIFT. DX CHEST PAIN, AND CHEST PRESSURE. HAS DENIED BOTH SINCE ARRIVAL ON FLOOR. O2 AT 2L/MIN PER NC. HOB ELEVATED FOR COMFORT. ABLE TO REPOSITOIN SELF IN BED WITHOUT ASSIST FOR COMFORT/SKIN MAINTENANCE BUT OUT OF BED WITH ASSIST. MED TELE SINUS TACH AND BBB, PER PCU REPORT. HAS BEEN RESTING QUIELTY WITH FEW INTRRUPTIONS. CALL LIGHT IN REACH, RAILS UP X 2 AND BED IN LOW POSITION FOR SAFETY. WILL CONTINUE TO MONITOR
[2023-10-24 04:52] LABS: Hematocrit 25.3 % (33.0-51.0); Hemoglobin 8.3 g/dL (11.5-16.0)
[2023-10-24 05:32] VITALS: BP 127/76
[2023-10-24 05:36] LABS: Albumin, Blood 2.7 g/dL (3.4-5.0); Anion Gap 13 mmol/L (3-11); Blood Urea Nitrogen 77 mg/dL (8-24); Bun/Creatinine Ratio 33.2 (12.0-20.0); CO2, Blood 21 mmol/L (21-32); Calcium, Blood 8.9 mg/dL (8.5-10.1); Chloride, Blood 105 mmol/L (98-108); Creatinine, Blood 2.32 mg/dL (0.40-1.00); Glomerular Filtration Rate 20 (60-); Glucose, Blood 139 mg/dL (70-99); Magnesium, Blood 1.3 mg/dL (1.6-2.4); Phosphorus, Blood 3.8 mg/dL (2.5-4.9); Potassium, Blood 4.5 mmol/L (3.5-5.5); Sodium, Blood 134 mmol/L (136-145); Uric Acid, Blood 9.2 mg/dL (2.6-6.0)
[2023-10-24] MEDS ORDERED: Mag Sulfate 1 GM/D5% 100ML 100 ML IV STA (07:07)
[2023-10-24 07:37] VITALS: BP 121/72
[2023-10-24] MEDS ORDERED: Spironolactone 12.5 MG TAB PO SCH (09:00)
--- NOTE | 2023-10-24 09:00 | NUR ---
pt laying in bed, wakes easily but doses while nurse in room, she has a bit of a flat affect, coopertive with care, follows commands well, denies complaints at this time, lungs are clear dim in bases, resp even and unlabored, no cough noted, hrr, tele in place running st with bbb per monitor, see strip, trace edema noted to b/l le, ppp+1, cap refill <3 sec, vs stable, afebrile, piv x2 to rac and rfa, sites are clear and patent, btx4, abd flat soft nontender, voids via romano cath, draining yellow urine, skin c/w/d, maew, siomara, call light in reach.
[2023-10-24 16:48] VITALS: BP 131/83
--- NOTE | 2023-10-24 19:31 | NUR ---
pt got to chair with PT she became very uncomfortable after about an hr, got her back to bed and administered pain meds, no further complaints the rest of the shift, no acute changes this shift, call light in reach.
[2023-10-24 20:26] VITALS: BP 125/71
[2023-10-25 03:47] VITALS: BP 138/86
[2023-10-25 05:24] LABS: Hematocrit 26.8 % (33.0-51.0); Hemoglobin 8.8 g/dL (11.5-16.0)
[2023-10-25 05:49] LABS: Albumin, Blood 2.8 g/dL (3.4-5.0); Anion Gap 12 mmol/L (3-11); Blood Urea Nitrogen 66 mg/dL (8-24); Bun/Creatinine Ratio 34.9 (12.0-20.0); CO2, Blood 22 mmol/L (21-32); Calcium, Blood 9.4 mg/dL (8.5-10.1); Chloride, Blood 106 mmol/L (98-108); Creatinine, Blood 1.89 mg/dL (0.40-1.00); Glomerular Filtration Rate 26 (60-); Glucose, Blood 142 mg/dL (70-99); Magnesium, Blood 1.8 mg/dL (1.6-2.4); Phosphorus, Blood 3.1 mg/dL (2.5-4.9); Potassium, Blood 4.5 mmol/L (3.5-5.5); Sodium, Blood 135 mmol/L (136-145)
--- NOTE | 2023-10-25 06:04 | NUR ---
SHIFT SUMMARY: PATIENT ORIENTED BUT MILDLY DISTRACTED DURING QUESTIONS, SLOW TO ANSWER. COMPLAINTS OF PAIN IN LEGS DURING NIGHT, GIVEN MORPHINE IV. SNIDER CATHETER. PATIENT SLEPT INTERMITTENTLY THROUGH NIGHT.
[2023-10-25] MEDS ORDERED: JARDIANCE10 MG PO (12:22)
[2023-10-25] MEDS ORDERED: Norco 5-325 Ta1 EACH PO (12:23)
[2023-10-25] MEDS ORDERED: Lisinopril2.5 MG PO (12:23)
[2023-10-25] MEDS ORDERED: Isosorbide Mono30 MG PO (12:23)
[2023-10-25] MEDS ORDERED: SPIR25 PO (12:24)
[2023-10-25 15:32] VITALS: BP 120/69
--- NOTE | 2023-10-25 18:37 | NUR ---
REPORT RECIEVED VERIFIED A/O X 3-4 VSS PT HAS FLAT AFFECT BUT COOPERATIVE WITH CARE. PT ASSISTED PT TO CHAIR, PT WAS TEARFUL AND WANTS TO GO HOME IS ADDIMIT SHE IS LEAVING, PT REMAINED IN CHAIR FOR THE AFTERNOON. MD IN WITH PT AND DISCHARGE ORDERS GIVEN. SNIDER WAS DCED WITH 600 MLS CLR YELLOW URINE, NO DISCHARGE NOTED AND CATH IN TACT. SPOKE WITH PT AT LENGTH ABOUT GOING HOME BUT NOW SHOWING SOME HESITATION. I CALLED MD BACK AND DISCHARGE HELD FOR TOMORROW. PT WAS ABLE TO TRANSFER TO BSC AND URINATE ON OWN. REFUSING TO EAT STATES SHE ISNT HUNGRY. FAMILY AT BEDSIDE NO CHANGE IN CONDITION.
[2023-10-25 20:09] VITALS: BP 123/85
--- NOTE | 2023-10-26 02:36 | NUR ---
10/25/232042 PT LYING IN BED, DENIES ANY DISCOMFORT AT THIS TIME. TELE SR WITH Panchito MEYER, BS 163. NO OTHER APPARENT SIGNS OF DISTRESS. CALL LIGHT IS IN REACH.
--- NOTE | 2023-10-26 02:39 | NUR ---
0000 PT LYING IN BED, APPEARS TO BE RESTING. BREATHING IS EVEN, UNLABORED. NO APPARENT SIGNS OF DISTRSS. VISITOR IN ROOM. CALL LIGHT IS IN REACH.
--- NOTE | 2023-10-26 03:04 | NUR ---
THIS RN ENTERS PT ROOM AND FINDS PT SLEEPING. THE PT DOES NOT APPEAR TO BE IN ANY DISTRESS OR EXHIBITING ANY S/S OF DISCOMFORT.
[2023-10-26 03:13] VITALS: BP 142/90
--- NOTE | 2023-10-26 05:04 | NUR ---
AAO X 4, RA, BS 163, TELE SR L BBB IN 'S. PT DENIED ANY DISCOMFORT FOR THIS SHIFT.
[2023-10-26 05:26] LABS: Hematocrit 28.3 % (33.0-51.0); Hemoglobin 9.4 g/dL (11.5-16.0); Mean Corpuscular HGB 30.7 pg (26.0-34.0); Mean Corpuscular HGB Conc 33.2 g/dL (31.5-36.5); Mean Corpuscular Volume 93 fL (80-100); Mean Platelet Volume 8.9 fL (9.1-12.4); Platelet Count 443 K/mm3 (150-400); RDW Coefficient Variation 13.9 % (11.7-14.2); RDW Standard Deviation 46.9 fL (35.1-46.3); Red Blood Cell Count 3.06 M/mm3 (3.80-5.20); White Blood Cell Count 9.52 K/mm3 (4.00-11.30)
[2023-10-26 05:54] LABS: Albumin, Blood 2.9 g/dL (3.4-5.0); Anion Gap 14 mmol/L (3-11); Blood Urea Nitrogen 59 mg/dL (8-24); Bun/Creatinine Ratio 32.8 (12.0-20.0); CO2, Blood 20 mmol/L (21-32); Calcium, Blood 9.2 mg/dL (8.5-10.1); Chloride, Blood 106 mmol/L (98-108); Glomerular Filtration Rate 28 (60-); Glucose, Blood 118 mg/dL (70-99); Magnesium, Blood 1.9 mg/dL (1.6-2.4); Phosphorus, Blood 3.2 mg/dL (2.5-4.9); Potassium, Blood 4.5 mmol/L (3.5-5.5); Sodium, Blood 135 mmol/L (136-145)
--- NOTE | 2023-10-26 06:05 | NUR ---
10/26/23 THIS RN ENTERS PT ROOM TO FIND PT AWAKE. PT DENIES PAIN, NAUSEA/VOMITING AT THIS TIME. REQUESTS THAT THIS RN INCREASE ROOM TEMPERATURE, WHICH IS DONE. PT DENIES HAVING ANY OTHER NEEDS AT THIS TIME.
[2023-10-26 07:32] VITALS: BP 141/89
[2023-10-26] MEDS ORDERED: Polyethylene Glycol 3350 17 gm PO SCH (09:00)
--- NOTE | 2023-10-26 15:38 | NUR ---
PATIENT STAYING. ADMITTING NOTIFIED TO PUT BACK INTO SYSTEM.
[2023-10-26 19:26] VITALS: BP 134/80
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
--- NOTE | 2023-10-26 20:40 | NUR ---
HELPED PT UP TO BEDSIDE COMMODE. PT ABLE TO URINATE BUT UNABLE TO HAVE A BOWEL MOVEMENT. MIRALAX GIVEN PER EMAR.
[2023-10-27 02:28] VITALS: BP 138/84
--- NOTE | 2023-10-27 03:46 | NUR ---
MARKETING EDUCATION TEACHER SUMMARY VSS. HOBELEVATED FOR COMFORT. ABLE TO USE BED SIDE COMMODE WITH ASSIST AND TURN SELF IN BED WITHOUT ASSIST FOR COMFORT. MED TELE SR WITH BBB AT 72. DENIES CHEST PAIN AND NO NOTED S/S ACUTE DISTRESS. HAS BEEN RESTING QUIELTY WITH FEW INTERRUPTONS. CALL LIGHT IN REACH, RAILS UP X 2 AND BED IN LOW POSITION FOR SAFETY. WILL CONTINUE TO MONITOR
[2023-10-27 05:14] LABS: BASOPHILS ABSOLUTE AUTO 0.08 K/mm3 (0.00-0.23); BASOPHILS PERCENT AUTO 1 % (0-2); EOSINOPHILS ABSOLUTE AUTO 0.48 K/mm3 (0.00-0.68); EOSINOPHILS PERCENT AUTO 5 % (0-6); Hematocrit 28.7 % (33.0-51.0); Hemoglobin 9.5 g/dL (11.5-16.0); IMMATURE GRAN ABSOLUTE AUTO 0.09 K/mm3 (0.00-0.10); IMMATURE GRAN PERCENT AUTO 1 % (0-1); LYMPHOCYTES ABSOLUTE AUTO 1.37 K/mm3 (0.84-5.20); LYMPHOCYTES PERCENT AUTO 14 % (21-46); MONOCYTES ABSOLUTE AUTO 0.99 K/mm3 (0.16-1.47); MONOCYTES PERCENT AUTO 10 % (4-13); Mean Corpuscular HGB Conc 33.1 g/dL (31.5-36.5); Mean Corpuscular Volume 94 fL (80-100); Mean Platelet Volume 8.9 fL (9.1-12.4); NEUTROPHILS ABSOLUTE AUTO 7.12 K/mm3 (1.96-9.15); NEUTROPHILS PERCENT AUTO 70 % (41-73); Platelet Count 459 K/mm3 (150-400); RDW Coefficient Variation 14.2 % (11.7-14.2); RDW Standard Deviation 47.7 fL (35.1-46.3); Red Blood Cell Count 3.06 M/mm3 (3.80-5.20); White Blood Cell Count 10.13 K/mm3 (4.00-11.30)
[2023-10-27 05:41] LABS: Albumin, Blood 2.9 g/dL (3.4-5.0); Anion Gap 12 mmol/L (3-11); Blood Urea Nitrogen 58 mg/dL (8-24); Bun/Creatinine Ratio 31.2 (12.0-20.0); CO2, Blood 22 mmol/L (21-32); Calcium, Blood 9.1 mg/dL (8.5-10.1); Chloride, Blood 107 mmol/L (98-108); Creatinine, Blood 1.86 mg/dL (0.40-1.00); Glomerular Filtration Rate 27 (60-); Glucose, Blood 127 mg/dL (70-99); Phosphorus, Blood 3.5 mg/dL (2.5-4.9); Potassium, Blood 4.6 mmol/L (3.5-5.5); Sodium, Blood 136 mmol/L (136-145)
[2023-10-27] MEDS ORDERED: Furosemide 10 MG/ML 4ML Vial IV ONE (07:40)
[2023-10-27 07:47] VITALS: BP 141/85
[2023-10-27 14:54] VITALS: BP 118/65
--- NOTE | 2023-10-27 17:15 | NUR ---
SHIFT SUMMARY PATIENT WITH NO ACUTE EVENTS DURING SHIFT. SHE VERBALIZES PAIN 2/10 BUT DECLINES OFFER OF ANY PAIN MEDICATION. "IM FINE" SHE SAYS. SHE DENIES ANY CHEST PAIN OR PRESSURE. SHE IS UP IN CHAIR FOR MEALS TODAY.
[2023-10-27 19:16] VITALS: BP 106/56
--- NOTE | 2023-10-28 03:54 | NUR ---
SHIFT SUMMARY ADMITTED FOR CHEST PAIN. DNR CODE. FOUND TO HAVE ACUTE ON CHRONIC CKD. 1000 ML FREE WATER RESTRICTION. PLAN IS FOR DC HOME W/HH WHEN READY FOR DC. ACHS CBG'S - LOW SS. ADA DIET. 1 ASSIST W/BRP. ON RA. TELEMETRY: NSR @ [address] MOHAN IS RENAL CONSULT. SHE DENIES PAIN OR NAUSEA THIS SHIFT. NO NEW CONCERNS.
[2023-10-28 04:30] VITALS: BP 110/63
[2023-10-28 04:53] LABS: BASOPHILS ABSOLUTE AUTO 0.08 K/mm3 (0.00-0.23); BASOPHILS PERCENT AUTO 1 % (0-2); EOSINOPHILS PERCENT AUTO 5 % (0-6); Hematocrit 28.9 % (33.0-51.0); Hemoglobin 9.5 g/dL (11.5-16.0); IMMATURE GRAN ABSOLUTE AUTO 0.11 K/mm3 (0.00-0.10); IMMATURE GRAN PERCENT AUTO 1 % (0-1); LYMPHOCYTES ABSOLUTE AUTO 1.96 K/mm3 (0.84-5.20); LYMPHOCYTES PERCENT AUTO 21 % (21-46); MONOCYTES ABSOLUTE AUTO 1.01 K/mm3 (0.16-1.47); MONOCYTES PERCENT AUTO 11 % (4-13); Mean Corpuscular HGB 30.7 pg (26.0-34.0); Mean Corpuscular HGB Conc 32.9 g/dL (31.5-36.5); Mean Corpuscular Volume 94 fL (80-100); Mean Platelet Volume 8.9 fL (9.1-12.4); NEUTROPHILS ABSOLUTE AUTO 5.65 K/mm3 (1.96-9.15); NEUTROPHILS PERCENT AUTO 61 % (41-73); Platelet Count 484 K/mm3 (150-400); RDW Coefficient Variation 14.1 % (11.7-14.2); RDW Standard Deviation 47.7 fL (35.1-46.3); Red Blood Cell Count 3.09 M/mm3 (3.80-5.20); White Blood Cell Count 9.31 K/mm3 (4.00-11.30)
[2023-10-28 05:13] LABS: Anion Gap 12 mmol/L (3-11); Blood Urea Nitrogen 64 mg/dL (8-24); Bun/Creatinine Ratio 27.6 (12.0-20.0); CO2, Blood 23 mmol/L (21-32); Calcium, Blood 9.1 mg/dL (8.5-10.1); Chloride, Blood 106 mmol/L (98-108); Creatinine, Blood 2.32 mg/dL (0.40-1.00); Glomerular Filtration Rate 20 (60-); Glucose, Blood 120 mg/dL (70-99); Magnesium, Blood 1.9 mg/dL (1.6-2.4); Phosphorus, Blood 4.6 mg/dL (2.5-4.9); Sodium, Blood 136 mmol/L (136-145)
[2023-10-28 07:11] VITALS: BP 122/67
[2023-10-28 15:34] VITALS: BP 111/65
--- NOTE | 2023-10-28 18:06 | NUR ---
SHIFT SUMMARY PT AOX4, TEARFUL THIS SHIFT AND WANTING TO GO HOME. EDUCATED ON THE RISKS OF LEAVING AND SHE CONSULTED HER FAMILY. SHE DECIDED NOT TO LEAVE AMA. FAMILY IS AT THE BS NOW. MEDICATED FOR CONSTIPATION PER THE EMAR. NO BM THIS SHIFT. OFFERED A SHOWER AND SHE REFUSED. NO OTHER COMPLAINTS. SHE CALLS AND MAKES HER NEEDS KNOWN. NO EVENTS PER TELE. SHE IS A SBA TO THE BATHROOM. SHE IS ON A 1,000ML FLUID RESTRICTION. CALL LIGHT WITHIN REACH, BED LOCKED AND IN THE LOWEST POSITION. WILL REPORT TO ONCOMING NURSE.
[2023-10-28 19:16] VITALS: BP 97/54
[2023-10-29 02:38] VITALS: BP 114/57
--- NOTE | 2023-10-29 04:54 | NUR ---
NOC SHIFT SUMMARY PT IS A BIT WITHDRAWN. REPORTS SHE FEELS SAD TODAY. NSR ON TELE WITH NO COMPLAINTS OF CHEST PAIN. PT IS HOPING SHE CAN DISCHARGE SOON. FALL PRECAUTIONS IN PLACE. CALL LIGHT WITHIN REACH.
[2023-10-29 05:20] LABS: Hematocrit 28.1 % (33.0-51.0); Hemoglobin 9.3 g/dL (11.5-16.0)
[2023-10-29] MEDS ORDERED: Calcium Carbonate 500 MG Tab Chew PO PRN (05:25)
[2023-10-29 06:00] LABS: Albumin, Blood 3.1 g/dL (3.4-5.0); Anion Gap 13 mmol/L (3-11); Blood Urea Nitrogen 67 mg/dL (8-24); Bun/Creatinine Ratio 29.4 (12.0-20.0); CO2, Blood 22 mmol/L (21-32); Calcium, Blood 9.1 mg/dL (8.5-10.1); Chloride, Blood 105 mmol/L (98-108); Creatinine, Blood 2.28 mg/dL (0.40-1.00); Glomerular Filtration Rate 21 (60-); Glucose, Blood 152 mg/dL (70-99); Magnesium, Blood 1.8 mg/dL (1.6-2.4); Phosphorus, Blood 3.7 mg/dL (2.5-4.9); Potassium, Blood 4.7 mmol/L (3.5-5.5); Sodium, Blood 135 mmol/L (136-145)
[2023-10-29 07:24] VITALS: BP 123/68
[2023-10-29] MEDS ORDERED: Furosemide 10 MG / ML 2ML Vial IV ONE (07:40)
[2023-10-29 09:26] VITALS: BP 114/60
[2023-10-29] MEDS ORDERED: Calcium Carbon500 MG PO (12:04)
[2023-10-29 12:29] VITALS: BP 109/56
--- NOTE | 2023-10-29 13:03 | NUR ---
DISCHARGE SUMMARY PT A&OX4. VSS. PT REFUSED SNF. HOME HEALTH REFERRAL SENT. IV REMOVED. TELEMETRY REMOVED. DISCHARGE INSTRUCTIONS REVIEWED W/ PT, PT'S . PT VERBALIZED UNDERSTANDING TO SHIFT SUPERVISOR MEDICATIONS AND PLACE PHONE CALLS TUESDAY FOR FOLLOWUP APPTS WITH PCP AND NEPHROLOGY. MEDICATIONS FAXED TO [facility]. HARD SCRIPT ENCLOSED IN DISCHARGE FOLDER. PT TRANSFERRED TO WHEELCHAIR. WHEELED OUT BY FAMILY.
== END 2023-10-29 12:45 | disposition home health service (06) | DRG 280 ==
LOC: ER 12:54 → MEDS 12:55 → PCU 12:55 → MEDS 10-23 22:17 → ENPENDDIS 10-26 11:55 → MEDS 10-26 14:30
PROVIDERS: Family Medicine; Internal Medicine; Internal Medicine Nephrology; Nurse Practitioner Acute Care; Physician Assistant; ADMIT Student in an Organized Health Care Education/Training Program
PROC: 30233N1 Transfusion of Nonautologous Red Blood Cells into Peripheral Vein, Percutaneous Approach (ICD-10-PCS; principal; 2023-10-22)
DX: I21.4 Non-ST elevation (NSTEMI) myocardial infarction (principal); N17.0 Acute kidney failure with tubular necrosis; I13.0 Hypertensive heart and chronic kidney disease with heart failure and stage 1 through stage 4 chronic kidney disease, or unspecified chronic kidney disease; I50.22 Chronic systolic (congestive) heart failure; N18.4 Chronic kidney disease, stage 4 (severe); E87.1 Hypo-osmolality and hyponatremia; Z66 Do not resuscitate; I24.9 Acute ischemic heart disease, unspecified; D63.1 Anemia in chronic kidney disease; I25.10 Atherosclerotic heart disease of native coronary artery without angina pectoris; E11.22 Type 2 diabetes mellitus with diabetic chronic kidney disease; E03.9 Hypothyroidism, unspecified; K21.9 Gastro-esophageal reflux disease without esophagitis; E78.5 Hyperlipidemia, unspecified; E66.01 Morbid (severe) obesity due to excess calories; I34.0 Nonrheumatic mitral (valve) insufficiency; R10.31 Right lower quadrant pain; E86.9 Volume depletion, unspecified; E87.5 Hyperkalemia; E87.70 Fluid overload, unspecified; Z95.5 Presence of coronary angioplasty implant and graft; Z79.4 Long term (current) use of insulin; Z79.82 Long term (current) use of aspirin; Z79.890 Hormone replacement therapy; Z68.36 Body mass index [BMI] 36.0-36.9, adult
CPT/HCPCS: 36415; 36430; 71046; 76770; 78452; 80048; 80053; 80069; 81001; 82533; 82550; 82728; 82947; 83540; 83550; 83735; 83880; 84443; 84484; 84550; 85014; 85018; 85025; 85027; 85049; 85520; 85610; 85730; 86850; 86900; 86901; 86923; 87086; 93005; 93010; 93017; 94760; 97110; 97116; 97162; 97165; 97530; 97535; 99285-25; A9270; A9500; C8929; G0378; J0706; J0881; J1644; J1815; J1940; J2270; J2405; J2785; J3475; J7040; P9016; Q9957

== ENCOUNTER → 2023-11-09 | Outpatient (CLI) | payer OTHER ==
[~2023-11-09] MED LIST changes: +Calcium Carbon500 MG PO; +JARDIANCE10 MG PO; +Lisinopril2.5 MG PO; +SPIR25 PO
[2023-11-09 16:44] LABS: BASOPHILS ABSOLUTE AUTO 0.08 K/mm3 (0.00-0.23); BASOPHILS PERCENT AUTO 1 % (0-2); EOSINOPHILS ABSOLUTE AUTO 0.39 K/mm3 (0.00-0.68); EOSINOPHILS PERCENT AUTO 5 % (0-6); Hematocrit 33.1 % (33.0-51.0); Hemoglobin 10.7 g/dL (11.5-16.0); IMMATURE GRAN ABSOLUTE AUTO 0.02 K/mm3 (0.00-0.10); IMMATURE GRAN PERCENT AUTO 0 % (0-1); LYMPHOCYTES ABSOLUTE AUTO 1.67 K/mm3 (0.84-5.20); LYMPHOCYTES PERCENT AUTO 22 % (21-46); MONOCYTES ABSOLUTE AUTO 0.59 K/mm3 (0.16-1.47); MONOCYTES PERCENT AUTO 8 % (4-13); Mean Corpuscular HGB 31.4 pg (26.0-34.0); Mean Corpuscular HGB Conc 32.3 g/dL (31.5-36.5); Mean Corpuscular Volume 97 fL (80-100); Mean Platelet Volume 9.1 fL (9.1-12.4); NEUTROPHILS ABSOLUTE AUTO 4.98 K/mm3 (1.96-9.15); NEUTROPHILS PERCENT AUTO 65 % (41-73); Platelet Count 374 K/mm3 (150-400); RDW Coefficient Variation 15.6 % (11.7-14.2); RDW Standard Deviation 52.6 fL (35.1-46.3); Red Blood Cell Count 3.41 M/mm3 (3.80-5.20); White Blood Cell Count 7.73 K/mm3 (4.00-11.30)
[2023-11-09 17:19] LABS: Albumin, Blood 3.7 g/dL (3.4-5.0); Albumin/Globulin Ratio 0.9 (0.8-1.8); Bilirubin, Total 0.6 mg/dL (0.1-1.0); Bun/Creatinine Ratio 20.2 (12.0-20.0); Calcium, Blood 9.3 mg/dL (8.5-10.1); Creatinine, Blood 2.62 mg/dL (0.40-1.00); Potassium, Blood 5.6 mmol/L (3.5-5.5); Total Protein, Blood 7.7 g/dL (6.4-8.2)
== END ==
LOC: LAB SHORT 14:52 → LAB 14:52
PROVIDERS: Nurse Practitioner Family
DX: N19 Unspecified kidney failure (principal)
CPT/HCPCS: 80053; 85025

== ENCOUNTER → 2023-11-23 | Outpatient (CLI) | payer OTHER ==
[2023-11-23 19:39] LABS: BASOPHILS ABSOLUTE AUTO 0.09 K/mm3 (0.00-0.23); BASOPHILS PERCENT AUTO 1 % (0-2); EOSINOPHILS ABSOLUTE AUTO 0.73 K/mm3 (0.00-0.68); EOSINOPHILS PERCENT AUTO 9 % (0-6); Hematocrit 35.8 % (33.0-51.0); Hemoglobin 11.7 g/dL (11.5-16.0); IMMATURE GRAN ABSOLUTE AUTO 0.04 K/mm3 (0.00-0.10); IMMATURE GRAN PERCENT AUTO 1 % (0-1); LYMPHOCYTES ABSOLUTE AUTO 1.69 K/mm3 (0.84-5.20); LYMPHOCYTES PERCENT AUTO 20 % (21-46); MONOCYTES ABSOLUTE AUTO 0.49 K/mm3 (0.16-1.47); MONOCYTES PERCENT AUTO 6 % (4-13); Mean Corpuscular HGB 32.2 pg (26.0-34.0); Mean Corpuscular HGB Conc 32.7 g/dL (31.5-36.5); Mean Corpuscular Volume 99 fL (80-100); Mean Platelet Volume 9.4 fL (9.1-12.4); NEUTROPHILS ABSOLUTE AUTO 5.31 K/mm3 (1.96-9.15); NEUTROPHILS PERCENT AUTO 64 % (41-73); NRBC ABSOLUTE 0.02 K/mm3 (0.00-0.02); NRBC Auto 0.2 /100 WBC (0.0-0.2); Platelet Count 451 K/mm3 (150-400); RDW Coefficient Variation 14.7 % (11.7-14.2); RDW Standard Deviation 52.3 fL (35.1-46.3); Red Blood Cell Count 3.63 M/mm3 (3.80-5.20); White Blood Cell Count 8.35 K/mm3 (4.00-11.30)
[2023-11-23 19:48] LABS: Albumin, Blood 3.7 g/dL (3.4-5.0); Albumin/Globulin Ratio 0.9 (0.8-1.8); Bilirubin, Total 0.3 mg/dL (0.1-1.0); Bun/Creatinine Ratio 17.9 (12.0-20.0); Creatinine, Blood 2.34 mg/dL (0.40-1.00); Globulin, Blood 3.9 g/dL (2.2-4.0); Potassium, Blood 4.9 mmol/L (3.5-5.5); Total Protein, Blood 7.6 g/dL (6.4-8.2)
== END | disposition home or self-care (01) ==
LOC: LAB SHORT 18:50
PROVIDERS: Nurse Practitioner Family
DX: E11.9 Type 2 diabetes mellitus without complications (principal); R06.02 Shortness of breath
CPT/HCPCS: 80053; 83036; 83880; 85025

== ENCOUNTER 2024-04-09 05:18 | Observation (INO) | payer OTHER ==
[~2024-04-09] VITALS: Ht 162.6 cm; Wt 90.7 kg
[2024-04-09] MEDS ORDERED: Ondansetron HCl 2 MG / ML 2ML Vial IV PRN ×2 (05:30→14:05)
[2024-04-09 05:49] LABS: BASOPHILS ABSOLUTE AUTO 0.07 K/mm3 (0.00-0.23); BASOPHILS PERCENT AUTO 1 % (0-2); EOSINOPHILS ABSOLUTE AUTO 0.46 K/mm3 (0.00-0.68); EOSINOPHILS PERCENT AUTO 4 % (0-6); Hematocrit 23.8 % (33.0-51.0); Hemoglobin 7.8 g/dL (11.5-16.0); IMMATURE GRAN ABSOLUTE AUTO 0.03 K/mm3 (0.00-0.10); IMMATURE GRAN PERCENT AUTO 0 % (0-1); LYMPHOCYTES ABSOLUTE AUTO 2.31 K/mm3 (0.84-5.20); LYMPHOCYTES PERCENT AUTO 20 % (21-46); MONOCYTES PERCENT AUTO 8 % (4-13); Mean Corpuscular HGB 33.6 pg (26.0-34.0); Mean Corpuscular HGB Conc 32.8 g/dL (31.5-36.5); Mean Corpuscular Volume 103 fL (80-100); Mean Platelet Volume 9.6 fL (9.1-12.4); NEUTROPHILS ABSOLUTE AUTO 7.71 K/mm3 (1.96-9.15); NEUTROPHILS PERCENT AUTO 67 % (41-73); Platelet Count 268 K/mm3 (150-400); RDW Coefficient Variation 13.4 % (11.7-14.2); Red Blood Cell Count 2.32 M/mm3 (3.80-5.20); White Blood Cell Count 11.48 K/mm3 (4.00-11.30)
[2024-04-09] MEDS ORDERED: NS 1,000 ML IV SCH (06:20)
[2024-04-09] MEDS ORDERED: FentaNYL Citrate 50 MCG/ML 2 ML Injection IV ONE (06:20)
[2024-04-09 06:22] LABS: Albumin, Blood 3.3 g/dL (3.4-5.0); Albumin/Globulin Ratio 0.9 (0.8-1.8); Bilirubin, Total 0.6 mg/dL (0.1-1.0); Bun/Creatinine Ratio 28.7 (12.0-20.0); Calcium, Blood 8.9 mg/dL (8.5-10.1); Creatinine, Blood 2.3 mg/dL (0.40-1.00); Globulin, Blood 3.8 g/dL (2.2-4.0); Potassium, Blood 4.7 mmol/L (3.5-5.5); Total Protein, Blood 7.1 g/dL (6.4-8.2)
[2024-04-09] MEDS ORDERED: HYDROcodone 5-APAP 325 TAB PO ONE (08:45)
[2024-04-09] MEDS ORDERED: Ciprofloxacin 500 MG Tab PO ONE (08:55)
[2024-04-09] MEDS ORDERED: MetroNIDAZOLE 500 MG Tab PO ONE (08:55)
[2024-04-09] MEDS ORDERED: Furosemide 10 MG/ML 4ML Vial ONE (09:37)
[2024-04-09] MEDS ORDERED: Furosemide 10 MG/ML 4ML Vial IV ONE ×2 (09:45→15:00)
[2024-04-09] MEDS ORDERED: FLU VACC TS2024-25(6MOS UP)/PF 45 MCG/0.5 ML SYRINGE IM PRN (11:05)
[2024-04-09] MEDS ORDERED: OxyCODONE HCL 5 MG TAB PO ONE (12:05)
--- NOTE | 2024-04-09 12:45 | NUR ---
This patient is currently on a bipap, surrounded by her son, daughter, sister and . The patient's son is the live-in caregiver for both the patient and her . The patient signed a POLST on last admit, of DNR, and selective treatments. The family verbalize understanding that the patient did not tolerate fluids, as it increased her SOB to the point of needing bi-pap. She is also currently on levophed for soft blood pressures. Initially I met with the patient and her daughter, along with Dr. Belol. He explained the pt's current condition to the daughter and patient, who both asked that no further decisions be made until pt's son arrived. Pt's son, along with pt's and sister arrived, and were tearful at my return visit. The patient told her family, "I'm done, I'm very tired. I don't want to wear this mask." Pt's sister stated to patient, you understand if we take this mask off, you will pass away, right?" The patient held her sister's hand and stated, "Yes I do." Family was tearful, but stated they are in agreement to begin comfort care now as this is in line with the patient's wishes and is also appropriate given her worsening pulmonary vascular congestion, CHF, complex calcified multivessel CAD. Plan: Pt to transfer to ICU due to levophed. Once she is there and given medication for low back pain and extreme SOB, bipap to be removed and levophed stopped. Family verbalize understanding that given pt's respiratory distress and low blood pressures, she may end up passing in the hospital vs home with hospice. The state they would of course rather her make it home, but are all in agreement that pt's comfort is the primary concern at this time. Dr. Bello in agreement, ordered 10mg roxanol now to alleviate pain. Will initiate comfort care with Dr. Rivers when she becomes avaialble.
[2024-04-09 13:31] VITALS: BP 85/51
--- NOTE | 2024-04-09 13:51 | NUR ---
ADMIT PT ARRIVED TO ICU 10 FROM ED. PT ALERT, ORIENTED TO PERSON AND LOCATION, COMPLAINING OF GENERALIZED PAIN. LEVOPHED INFUSING AT 7MCG/MIN, MAP 62. SPOKE WITH PT ABOUT HER GOALS OF CARE AND SHE KEPT DEFERRING TO HER SON AND DAUGHTER FOR DECISION MAKING. SPOKE WITH PT'S SON, DAUGHTER AND DISCUSSING GOALS OF CARE AND WHAT TREATMENT LOOKS LIKE IF THEY PURSUE AGGRESSIVE CARE. AFTER EXPLAINING THIS, PT'S FAMILY SAID THEY JUST WANT PT TO BE COMFORTABLE AND NOT HURT ANYMORE. FAMILY STATED THAT THEY WOULD LIKE TO TAKE HER HOME ON HOSPICE. TALKED WITH FAMILY ABOUT THE POSSIBILITY OF PT NOT SURVIVNG LONG ENOUGH TO DO THAT ONCE THE PRESSOR IS TURNED OFF AND BECAUSE OF RESPIRATORY DECOMPENSATION. FAMILY VERBALIZED UNDERSTANDING OF THIS AND ALSO REITTERATED THAT COMFORT IS PRIORITY. DR. SOSA NOTIFIED OF THIS AND SAID SHE WOULD PUT IN COMFORT CARE ORDERS. NIK, FROM PALLIATIVE CARE UPDATED.
[2024-04-09] MEDS ORDERED: Morphine Sulfate 4 MG/1 ML Injection ONE (13:56)
[2024-04-09] MEDS ORDERED: Morphine Sulfate 20 MG/1ML 1 ML Oral Syringe SL PRN (14:05)
[2024-04-09] MEDS ORDERED: Scopolamine Hydrobromide Patch TOP PRN (14:05)
[2024-04-09] MEDS ORDERED: Atropine Sulfate 1% Opth Soln 2ML BTL SL PRN (14:05)
[2024-04-09] MEDS ORDERED: Morphine Sulfate 4 MG/1 ML Injection IV ONE (14:15)
[2024-04-09] MEDS ORDERED: LORazepam 2 MG/ML 1ML Injection IV PRN (15:35)
--- NOTE | 2024-04-09 17:09 | NUR ---
TRANSFER PT TRANSFERRED UP TO MEDICAL FLOOR 350. REPORT GIVEN TO MIGUEL ON MEDICAL FLOOR. PT'S , SON AND DAUGHTER ALL AWARE OF PT'S NEW ROOM BEFORE THEY LEFT TO GET DINNER. PT TRANSFERRED VIA BED. MEDICATED PRIOR TO TRANSFER FOR COMFORT.
--- NOTE | 2024-04-09 18:14 | NUR ---
PT TRANSFERED FROM ICU 10 TO ROOM 350 THIS SHIFT AROUND 1500. PT NOTED TO BE UNRESPONSIVE UPON ARRIVAL. RESPIRATION EVEN AT 18. PLAN IS TO REMAIN COMFORT CARE AND POSSIBLE LOOK INTO GOING HOME ON HOSPICE IF STABLE FOR TRANSPORT.
--- NOTE | 2024-04-09 22:25 | NUR ---
Pt at 2213, Charge nurse notified, daughter Kerline notifed at [phone]. Charge nurse will notify donor line,
[2024-04-10] MEDS ORDERED: Heparin Sodium 5000 Units/ML 1ML MDV SC SCH (09:00)
== END 2024-04-09 22:15 ==
LOC: ER 05:18 → ICUE 05:19 → ER 11:02 → ICUE 11:02 → MEDS 16:57
PROVIDERS: Emergency Medicine; ADMIT Internal Medicine
DX: R57.9 Shock, unspecified (principal); I21.4 Non-ST elevation (NSTEMI) myocardial infarction; J96.21 Acute and chronic respiratory failure with hypoxia; E11.22 Type 2 diabetes mellitus with diabetic chronic kidney disease; N18.4 Chronic kidney disease, stage 4 (severe); I50.23 Acute on chronic systolic (congestive) heart failure; D63.8 Anemia in other chronic diseases classified elsewhere; I25.10 Atherosclerotic heart disease of native coronary artery without angina pectoris; I25.2 Old myocardial infarction; E78.5 Hyperlipidemia, unspecified; K21.9 Gastro-esophageal reflux disease without esophagitis; E03.9 Hypothyroidism, unspecified; E66.9 Obesity, unspecified; Z68.36 Body mass index [BMI] 36.0-36.9, adult; Z66 Do not resuscitate; Z87.891 Personal history of nicotine dependence; Z79.82 Long term (current) use of aspirin; Z79.4 Long term (current) use of insulin; Z79.890 Hormone replacement therapy; Z79.899 Other long term (current) drug therapy; Z95.5 Presence of coronary angioplasty implant and graft; Z90.49 Acquired absence of other specified parts of digestive tract
CPT/HCPCS: 36415; 71045; 71046; 74177; 80053; 83690; 83880; 84484; 85025; 86850; 86900; 86901; 86923; 93005; 93010; 94660; 96361; 96374-59; 96375; 99285-25; A9270; G0378; J1940; J2060; J2270; J2405; J3010; J7030; J7060; Q9967